=== PATIENT | female | born 1965 | race Caucasian/White ===

== ENCOUNTER 2023-07-20 10:12 | Inpatient (IN) | payer MEDICARE, SELFPAY ==
[2023-07-20] VITALS (19 sets, daily range): BP systolic 66–135; BP diastolic 31–93; PULSE 76–136; RESP 17–40; TEMP 36.3–37.7; O2SAT 93–98; BMI 50.0; BMI 49.4
--- NOTE | 2023-07-20 10:27 | EKG12_ITS ---
Test Reason : SOB Blood Pressure : / mmHG Vent. Rate : 134 BPM Atrial Rate : 134 BPM P-R Int : 142 ms QRS Dur : 086 ms QT Int : 298 ms P-R-T Axes : 000 034 103 degrees QTc Int : 445 ms Sinus tachycardia Moderate voltage criteria for LVH, may be normal variant ( Sokolow-Lynch , [place] product ) T wave abnormality, consider lateral ischemia Abnormal ECG Confirmed by JON ATKINS, RAINE ([id number]), editor book DAYANARA SCHMIDT ([id number]) on 07/23/2023 6:34:25 AM Referred By: JAIME Confirmed By:RAINE WEBB MD
--- NOTE | 2023-07-20 10:33 | ED.RN ---
NO OLD EKG
--- NOTE | 2023-07-20 10:37 | CT_ITS ---
STUDY: CTA CHEST REASON FOR EXAM: Female, 58 years old. PE suspect RADIATION DOSAGE (If Supplied By Facility): CTDIvol = ( 12.66 ) mGy, DLP = ( 533.52 ) mGycm TECHNIQUE: The examination was performed with the intravenous administration of IV 100mL Isovue-370. Post-processing of the angiographic images was performed, with multiplanar reformation and 3D reconstruction. Individualized dose optimization techniques were used for this CT. COMPARISON: Comparison is made with prior chest radiograph done earlier in the day. FINDINGS: Normal enhancement of the main pulmonary artery and right and left pulmonary arteries. Normal enhancement of the bilateral peripheral pulmonary arteries. There is no demonstrated pulmonary embolism. Normal thoracic aorta and visualized great vessels. There is no demonstrated aortic dissection. There are calcifications of the coronary arteries. Normal mediastinum. Normal hilar regions. Normal visualized trachea and bronchi. The lungs are well expanded. Patchy infiltrate in the left lower lobe as well as in the posterior aspect of the lingular segment of the left upper lobe abutting the left major fissure. Minimal increased markings at the right lung base. Normal pleura. Normal chest wall structures. There are degenerative changes of thoracic spine. Normal visualized upper abdomen. CT/CTA Chest W/WO Contrast IMPRESSION: Patchy infiltrate in the left lower lobe as well as in the posterior segment of the lingular segment of the left upper lobe. Increased markings at the right lung base. No evidence of pulmonary Electronically Signed: Seymour Mckeon MD at 11:51 EST ,
--- NOTE | 2023-07-20 10:45 | RAD_ITS ---
STUDY: X-RAY CHEST REASON FOR EXAM: Female, 58 years old. Respiratory distress, hypotension, shortness of br TECHNIQUE: Single AP portable view of the chest. COMPARISON: None. FINDINGS: EKG electrodes are seen. Small left pleural effusion with left basilar infiltrate. Normal size heart. Normal mediastinum and vikas. Normal visualized pulmonary arteries. There is atherosclerotic calcification of the aortic arch with tortuosity. Normal visualized thoracic spine. Normal visualized ribs, clavicles, and shoulders. There is no demonstrated abnormality of the visualized soft tissue structures of the upper abdomen. RAD/Chest 1 View (Portable) IMPRESSION: Small left pleural effusion with left basilar infiltrate. Electronically Signed: Seymour Mckeon MD at 11:16 EST ,
[2023-07-20 10:48] LABS: Allen Test Positive; Base Excess 15 mmol/L (-2 to +2); Bicarbonate 38.5 mmol/L (22-26); Blood Gas Specimen Type ART; Mode Not entered; O2 Delivery Device Cannula; PO2 71 mmHG (75-100); SITE R Radial; SO2 95 % (95-99); Total Carbon Dioxide 40 mmol/L; pCO2 52.3 mmHg (35-45); pH 7.47 (7.35-7.45)
[2023-07-20] MEDS: 0.9% Normal Saline (500mL Bag) 500 ML 1000 ML IV (10:56)
[2023-07-20 10:58] LABS: International Normalized Ratio 0.9; Partial Thromboplast Time 26.9 Seconds (24.1-36.2); Prothrombin Time (Protime)PT. 12.3 SECONDS (11.7-14.9)
[2023-07-20 11:03] LABS: Hematocrit 49.6 % (37-47); Hemoglobin 14.8 g/dL (12.0-15.0); Mean Corp Hgb Conc 29.8 g/dL (32-36); Mean Corpuscular Hgb 27.9 pg (27.0-32.0); Mean Corpuscular Volume 93.4 fL (81-99); Mean Platelet Vol. 13.6 fl (6.2-12.0); POSITIVE COUNT YES; POSITIVE DIFFERENTIAL YES; POSITIVE MORPHOLOGY YES; Platelet Count 66 K/mm3 (150-450); RBC Distribution Width CV 15.9 % (11.6-14.6); RBC Distribution Width SD 55.1 fl (35.1-43.9); Red Blood Count 5.31 M/mm3 (4.2-5.4)
[2023-07-20 11:05] LABS: Differential Indicated MANUAL DIFF
--- NOTE | 2023-07-20 11:11 | EDS_ITS ---
HPI History of Present Illness Chief Complaint: Shortness of Breath Detail of Chief Complaint: Acute onset of shortness of breath Informant: patient and family Onset/Context/Timing Onset: Hours (Driving to [facility] to see her nail setter for complete echo) Context: Sudden Onset Timing: Continuous Quality: Dyspnea Location: Respiratory Current Severity: Severe Maximum Severity: Severe Worsened by: Activity Relieved by: Nothing, increased O2 from 3 L to 5 L Associated Symptoms Associated Symptoms: abdominal pain, chest pain, chills, cough, fever, vomiting, diarrhea and suicidal thoughts Narrative Narrative: Patient is a 58-year-old woman who is on 3 L by nasal cannula normally. Oxygen was increased to 5 L with no effect. Patient does have a history of pulmonary embolus. Her anticoagulant was recently discontinued. She does have a history of idiopathic hypertrophic cardiomyopathy. Limited echo performed June 29 revealed an EF of 55? five 2D mode. The left ventricle is slightly enlarged. Right ventricle is normal. She had blood work on June 29 and BUN/creatinine were 12 and 0.49. Reviewing records from the clinic indicated she is scheduled to have a complete echo today by her nail setter. Patient denies fever, chills night sweats. Patient denies rhinorrhea, congestion, sore throat. She does complain of slight cough. She denies history of congestive heart failure. She denies orthopnea or PND. She denies chest discomfort. Patient denies leg pain, swelling or discoloration. Patient denies GI symptoms. Patient has history of hypothyroidism and GERD. She is taking levothyroxine and Protonix respectively Prior similar symptoms: No Recent Illness/Hospitalization: No PFSH PFSH Medical History (Updated 07/20/23 @ 12:[address] Lul Beal MD) Hypertrophic cardiomyopathy Home Medications ofztggctxbsciub-vvumdxjfzujiwun-QP 2 mg-30 mg-10 mg/5 mL oral syrup 10 ml PO Q4H PRN congestion 07/20/23 [History Last Taken Unknown] levothyroxine 150 mcg tablet 150 mcg PO DAILY 07/20/23 [History Last Taken Unknown] metoprolol succinate 100 mg tablet,extended release 24 hr 100 mg PO DAILY 07/20/23 [History Last Taken Unknown] pantoprazole 40 mg tablet,delayed release 40 mg PO DAILY 07/20/23 [History Last Taken Unknown] Allergy/AdvReac Type Severity Reaction Status Date / Time No Known Allergies Allergy Verified 07/20/23 10:14 Social History (Updated 07/20/23 @ 11:[address] Lul Beal MD) household members: family Smoking Status: Former smoker ROS ROS ED Constitutional Constitutional ED: Denies chills, fever(s), subjective, sweats or weight loss Eyes Eyes: Denies blurry vision or change in vision ENT ENT ED: Denies ear pain, rhinorrhea or sore throat Cardiovascular Cardiovascular: Denies chest pain, orthopnea, palpitations or paroxysmal nocturnal dyspnea Respiratory/Chest Respiratory/Chest: Reports cough, dyspnea and dyspnea on exertion; Denies orthopnea, paroxysmal nocturnal dyspnea or sputum Gastrointestinal Gastrointestinal: Denies abdominal pain, melena, nausea or vomiting Musculoskeletal Musculoskeletal: Denies arthralgias, back pain, myalgias or neck pain Integumentary Denies rash Neurologic Neurologic: Denies headache(s) or paresthesias Psychiatric Psychiatric: Reports anxiety Endocrine Endocrinology: Denies polydipsia, polyphagia or polyuria Hematologic/Lymphatic Hematologic/Lymphatic: Denies easy bleeding or easy bruising EXAM Physical Exam Narrative Exam Narrative: Appears in distress. She is tachycardic, she is tachypneic and hypoxic. She is also hypotensive. Const Vital Signs: 07/20/23 10:12 07/20/23 10:31 07/20/23 10:31 Temperature 97.3 F L Temperature Source Temporal Pulse Rate 136 H 133 H Respiratory Rate 22 H 40 H Respiratory Effort Respiratory Pattern Blood Pressure 66/51 L 80/67 L Blood Pressure Mean 56 71 Pulse Ox 94 96 Oxygen Delivery Method Nasal Cannula Nasal Cannula Nasal Cannula Oxygen Flow Rate (L/min) 6 6 6 07/20/23 10:33 07/20/23 10:39 07/20/23 10:59 Temperature 97.9 F Temperature Source Oral Pulse Rate 128 H 127 H Respiratory Rate 30 H 24 H Respiratory Effort Short of Breath Labored Respiratory Pattern Tachypnea Blood Pressure 75/50 L 92/31 L Blood Pressure Mean 58 51 Pulse Ox 96 95 Oxygen Delivery Method Nasal Cannula Nasal Cannula Oxygen Flow Rate (L/min) 5 5 07/20/23 11:08 Temperature Temperature Source Pulse Rate 127 H Respiratory Rate 24 H Respiratory Effort Respiratory Pattern Blood Pressure 97/67 Blood Pressure Mean 77 Pulse Ox 95 Oxygen Delivery Method Nasal Cannula Oxygen Flow Rate (L/min) 4.5 Positive well nourished, well developed and obese Constitutional Narrative: Is in respiratory distress and hemodynamically unstable. General Appearance ED: well developed; Negative for NAD or pallor Nutritional Appearance: obese HEENT HEENT Narrative: Nares patent. Posterior pharynx is normal. normocephalic and atraumatic; Negative for cyanosis of lips/distal nose or tenderness Eyes PERRL and EOMs intact bilaterally General Eye ED: Negative for pale conjunctiva or scleral icterus Neck full ROM, no lymphadenopathy, supple and no JVD Resp Resp Narrative: Use accessory muscles. Patient is tachypneic. She is not hypoxic. Patient has diminished breath sounds left greater than right. There are rhonchi and wheezing noted bilaterally. Wheezing is worse on the left. Cardio regular rhythm, S1 normal heart sound, S2 normal heart sound and no murmurs Rate: tachycardic GI non-tender, non-distended and no masses Auscultation: normoactive bowel sounds Palpation: soft Back/Spine no CVA tenderness Extremity Extremity Narrative: There is no asymmetry, discoloration, leg vein distention, there is no palpable cords. There is no tenderness on the distribution of deep venous system. Neuro oriented x3, CN's II-XII intact bilaterally and no sensory deficits noted Sensorium / Orientation: alert Psych mental status grossly normal Skin General Skin Exam: Negative for jaundice or pallor Lesions: no lesions Rashes: no rashes Sepsis Attestation Date exam was performed: 07/20/23 Time exam was performed: 11:54 Possible Source of Sepsis: Pulmonary Sepsis Organ Dysfunction Criteria Present: SBP < 90 mmHg or MAP < 65 mmHg and Lactic Acid > 2 mmol/L Fluid Resuscitation Fluid resuscitation indicated?: Yes Fluid Resuscitation ordered: Lesser volume fluid bolus ordered Amount of fluid ordered: 500 Reason for lesser fluid bolus:: Other (Since echo reveals normal EF and no evidence of diastolic dysfunction and patient is hypotensive again will give additional fluid boluses.) MDM MDM MDM Narrative Medical decision making narrative: Abrupt onset of dyspnea with tachycardia and hypotension prior history of PE with recent discontinuation of anticoagulation therapy concerned patient may have had a PE. Will obtain CTA of the chest. Since patient is hypotensive she received a 500 cc bolus since initially her EF was not known. After reviewing her records from the clinic will give more fluids if needed. Patient did respond to the 500 cc that was administered. History & Record Review Discussion w/independent historian: Patient and Family Lab Data Attestation: I reviewed the patient's lab results. Lab results narrative: White count is 3.0. H&H is normal. PT PTT are normal. Labs: Laboratory Results - last 24 hr 07/20/23 10:30 WBC 3.0 L RBC 5.31 Hgb 14.8 Hct 49.6 H MCV 93.4 MCH 27.9 MCHC 29.8 L RDW Std Deviation 55.1 H RDW Coeff of Martine 15.9 H Plt Count 66 L MPV 13.6 H Neut % (Auto) Not Reportable Absolute Neuts (auto) 1.4 L Absolute Lymphs (auto) 0.75 L Total Counted 100 Neutrophils % (Manual) 38 L Band Neutrophils % 8 H Lymphocytes % (Manual) 25 Monocytes % (Manual) 25 H Eosinophils % (Manual) 1 Myelocytes % 3 H Diff Path Review May foll Platelet Estimate MKD DEC RBC Morphology NORM C+C PT 12.3 INR 0.9 APTT 26.9 Sodium 136 Potassium 3.6 Chloride 91 L Carbon Dioxide 40.0 H Anion Gap 5 BUN 16 Creatinine 1.11 H Estim Creat Clear Calc 72.92 Est GFR (MDRD) Af Amer 64 Est GFR (MDRD) Non-Af 53 L BUN/Creatinine Ratio 14.4 Glucose 168 H Lactic Acid 2.7 H* Calcium 8.9 Total Bilirubin 0.80 AST 59 H ALT 47 Alkaline Phosphatase 50 Troponin I High Sens 155 H* B-Natriuretic Peptide 291.8 H Total Protein 6.7 Albumin 3.3 Globulin 3.4 Albumin/Globulin Ratio 1.0 ABG Data ABG results: ABG 07/20/23 10:44 Specimen Type ART Sample Site R Radial pH 7.47 H Bicarbonate Actual 38.5 H Total CO2 40 Base Excess 15 H O2 Saturation 95 O2 % 6.0 ABG pCO2 52.3 H ABG pO2 71 L Jerrell Test Positive O2 Delivery Device Cannula Vent Mode Not entered Radiography Chest X-Ray - ED: 1 View and Read by ED Physician (Chest x-ray reveals cardiomegaly. Left cardiac silhouette is somewhat obscured. There appears to be an effusion. The left hemidiaphragm is obscured as well. There is a single view because patient was hemodynamically stable and in respiratory distress. There is no cephalization. There is no cur) Diagnostic Testing: Clinical Impression(s) from Imaging Studies Chest CTA 07/20/23 10:37 IMPRESSION: Patchy infiltrate in the left lower lobe as well as in the posterior segment of the lingular segment of the left upper lobe. Increased markings at the right lung base. No evidence of pulmonary Electronically Signed: Seymour Mckeon MD at 11:51 EST , Chest X-Ray 07/20/23 10:45 IMPRESSION: Small left pleural effusion with left basilar infiltrate. Electronically Signed: Seymour Mckeon MD at 11:16 EST , EKG Initial EKG: Attestation: I personally reviewed and interpreted this EKG as follows: Interpretation: Sinus Tachycardia (Rate is 134. There is evidence of LVH. ID interval is 142 ms. Cures duration 86 ms. QT duration 298 ms. [place] is normal. There is no ossific changes which may be due to her respiratory distress. I also represent cardiac ischemia.) Critical Care Time Critical Care Time: Yes Critical care time (excluding procedures): 30-74 minutes (37), Including time spent: (, Physical, documentation, review of outside records, bedside care), Discussing w/Patient &/or Family/Special Education Curriculum Specialist, Discussing w/Consultants and Arranging Admission or Transfer Discharge Plan Triage Chief Complaint: Shortness of Breath ED Provider: Lul Beal Dx/Rx/DC Orders Clinical Impression: Severe sepsis with acute organ dysfunction, Hypothyroidism, Acute and chronic respiratory failure ([id number]), Community acquired pneumonia of left lower lobe of lung, Lingular pneumonia, Acute hypotension, Hypertrophic cardiomyopathy, Sinus tachycardia by electrocardiogram, Elevated troponin Prescriptions: No Action levothyroxine 150 mcg tablet 150 mcg PO DAILY pantoprazole 40 mg tablet,delayed release (DR/EC) 40 mg PO DAILY metoprolol succinate 100 mg tablet extended release 24 hr 100 mg PO DAILY pkvxxdxcdokgxfc-lsxefkxnn-JI 2-30-10 mg/5 mL syrup 10 ml PO Q4H PRN (Reason: congestion) Patient Comments: TAKE 10 ML BY MOUTH EVERY 4 HOURS NEEDED FOR COUGH, CONGESTION Primary Care Provider: Zaina Gant NP Referrals: Jo Hernandez NP, [employer] [Non-Staff] - Disposition Disposition: [facility]
[2023-07-20 11:13] LABS: AST(SGOT) 59 U/L (15-37); Alanine Aminotransfer ALT/SGPT 47 U/L (13-56); Albumin, Serum 3.3 g/dL (3.2-5.0); Alkaline Phosphatase 50 U/L (45-117); Anion Gap 5 (5-15); BUN 16 mg/dL (7-18); BUN/Creat Ratio 14.4 RATIO (10-20); Calcium,Total 8.9 mg/dL (8.5-10.1); Chloride 91 mmol/L (98-107); Creatinine, Serum 1.11 mg/dL (0.55-1.02); EST Glomerular Filtration Rate 53 mL/min (>60); Est Glom Filt Rate - Afr Amer 64 mL/min (>60); Estimated Creatinine Clearance 72.92 ml/min; Globulin 3.4 g/dL (2.2-4.2); Glucose 168 mg/dL (74-106); Potassium 3.6 mmol/L (3.5-5.1); Protein, Total 6.7 g/dL (6.4-8.2); Sodium Level 136 mmol/L (136-145); Troponin-I HS 155 pg/mL (3.0-54.0)
[2023-07-20 11:21] LABS: Eosinophil 1 % (0-5); Lactic Acid 2.7 mmol/L (0.4-1.9); Lymphocyte 25 % (19-41); Monocyte 25 % (0-10); Myelocyte 3 % (0-0); Neutrophil-Band 8 % (0-5); Neutrophil-Segmented 38 % (47-70); Platelet Estimate MKD DEC (ADEQ); Red Cell Morphology NORM C+C NORMAL (NORM C&C); Total Cells Counted 100 (MANUAL DIFF)
[2023-07-20 11:22] LABS: Absolute Lymphocyte Count 0.75 X10^3/uL (0.83-4.51); Absolute Neutrophil Count 1.4 X10^3/uL (2.0-7.7)
[2023-07-20 11:37] LABS: BNP,B-Type NATRIURETIC PEPTIDE 291.8 pg/mL (0-100)
[2023-07-20] MEDS: 0.9% Normal Saline (1000mL) 1,000 ML 1000 ML IV ×2 (11:59→12:01)
--- NOTE | 2023-07-20 12:17 | HP.PCM.HOS_ITS ---
HPI - General General Date of Admission: 07/20/23 Date of Service: 07/20/23 Chief Complaint: Worsening shortness of breath HPI Narrative PJ SHIRLEY, is a 58 F who presented to [facility] ED on 07/20/2023 with worsening shortness of breath. Patient seen at bedside on the floor shortly after arriving from the ED, daughter present. Patient was sitting up fairly comfortably in bed, in no acute distress. She was satting in the low to mid 90s on 6 L nasal cannula, no increased work of breathing noted. Patient stated that she felt significantly better now in comparison to earlier today when she arrived to the ED. Patient and daughter note that she had a recent complicated hospitalization at the [facility] as noted below. Since she was discharged from there, she has been on supplemental oxygen full-time, uncl ear on how many liters. Patient states she had been feeling fairly well since then, but this morning she had significant shortness of breath with some wheezing and came to the ED for further evaluation. Notably, patient and daughter state they were on their way up to [place] from [place], but because of patient's shortness of breath they decided to come to our hospital for further treatment because it was closer. Patient has received care primarily at either primary hospital or the [facility] in the past, has never been to our hospital. Patient currently reports mild cough with no significant sputum production. Reports feeling like she has mild wheezing in her upper airways. Has been using a rescue albuterol inhaler at home as needed, has not used it much recently. States she did not try using it this morning prior to coming to the hospital. She otherwise denies any fevers or chills. No other acute concerns at this time. Hospital records from recent admission at the [facility] obtained via [employer]. Patient was hospitalized at the [facility] (Main campus?) from 06/11 through 06/19/2023. Patient initially presented to [facility] on either 06/10 or 06/11 with acute hypoxic and hypercarbic respiratory failure. She was intubated and then transferred to [place] for further management. Per cardiology note from 06/19, etiology of acute respiratory failure was unclear but was thought to be secondary to flash pulmonary edema in setting of known hypertrophic cardiomyopathy. TTE did not reveal a left ventricular outflow tract obstruction per report. Patient was on a novel HOCM medication called Mavacamten that was thought to possibly be contributing to the issue, so this medication was discontinued. Echo did show marked biventricular hypertrophy with hyperdynamic LV and nearly duration of LV cavity in systole. Appears the patient was extubated around 06/14 to 06/15, required supplemental oxygen from that point going forward. There apparently was additional infiltrative cardiomyopathy workup pursued while there, results of this unknown. She was on appropriate beta-mor therapy on discharge from there. [place] by cardiology t here that given the severity of her cardiomyopathy and apparent inability to tolerate Mavacamten, definitive surgical management might include septal myectomy or ablation versus possible transplant. However, they also noted that she was a poor surgical candidate given her morbid obesity. She was eventually discharged on 06/19 with plan for close outpatient follow-up. [facility] Medical History (Updated 07/20/23 @ 18:[address] Jose Briseno, ) Hypertrophic cardiomyopathy Home Medications hfrfjuvcyxzzaha-nyjxyhbawvzrzvu-LS 2 mg-30 mg-10 mg/5 mL oral syrup 10 ml PO Q4H PRN congestion 07/20/23 [History Last Taken Unknown] levothyroxine 150 mcg tablet 150 mcg PO DAILY 07/20/23 [History Last Taken Unknown] metoprolol succinate 100 mg tablet,extended release 24 hr 100 mg PO DAILY 07/20 [History Last Taken Unknown] pantoprazole 40 mg tablet,delayed release 40 mg PO DAILY 07/20/23 [History Last Taken Unknown] Allergy/AdvReac Type Severity Reaction Status Date / Time No Known Allergies Allergy Verified 07/20/23 10:14 Family History no significant family his Social History household members: family Smoking Status: Former smoker ROS Constitutional Constitutional: Reports fatigue; Denies chills, fever(s) or weakness Eyes Eyes: Denies change in vision ENT HEENT: Denies dysphagia Cardiovascular Cardiovascular: Reports dyspnea on exertion; Denies chest pain, edema or lightheadedness Respiratory/Chest Respiratory/Chest: Reports cough, shortness of breath at rest, shortness of br eath with exertion and wheezing; Denies productive cough Gastrointestinal Gastrointestinal: Denies abdominal pain, constipation, diarrhea, nausea or vo miting Genitourinary Genitourinary: Denies dysuria Neurologic Neurologic: Denies dizziness, focal weakness or headache(s) Vital Signs Vital Signs Vital Signs: 07/20/23 10:12 07/20/23 10:31 07/20/23 10:31 Temperature 97.3 F L Temperature Source Temporal Pulse Rate 136 H 133 H Respiratory Rate 22 H 40 H Respiratory Effort Respiratory Pattern Blood Pressure 66/51 L 80/67 L Blood Pressure Mean 56 71 Pulse Ox 94 96 Oxygen Delivery Method Nasal Cannula Nasal Cannula Nasal Cannula Oxygen Flow Rate (L/min) 6 6 6 07/20/23 10:33 07/20/23 10:39 07/20/23 10:59 Temperature 97.9 F Temperature Source Oral Pulse Rate 128 H 127 H Respiratory Rate 30 H 24 H Respiratory Effort Short of Breath Labored Respiratory Pattern Tachypnea Blood Pressure 75/50 L 92/31 L Blood Pressure Mean 58 51 Pulse Ox 96 95 Oxygen Delivery Method Nasal Cannula Nasal Cannula Oxygen Flow Rate (L/min) 5 5 07/20/23 11:08 07/20/23 12:04 Temperature 98.3 F Temperature Source Oral Pulse Rate 127 H 128 H Respiratory Rate 24 H 32 H Respiratory Effort Respiratory Pattern Blood Pressure 97/67 112/85 H Blood Pressure Mean 77 94 Pulse Ox 95 93 Oxygen Delivery Method Nasal Cannula Nasal Cannula Oxygen Flow Rate (L/min) 4.5 5 Weight Weight: 132.2 kg Body Mass Index (BMI) 50.0 Physical Exam Const alert and oriented x3 Constitutional Narrative: Pleasant middle-aged female, morbidly obese, sitting up in bed, satting in low to mid 90s on 6 L nasal cannula, no increased work of breathing noted, conversing normally, no acute distress. General Appearance: cooperative and comfortable HEENT normocephalic, head/scalp atraumatic, hearing grossly normal bilaterally and nasal mucous membranes and turbinates normal Eyes PERRL, EOMs intact bilaterally and conjunctivae normal Neck full ROM, no lymphadenopathy and supple Lymph Lymphatic: no lymphadenopathy noted Chest inspection of chest normal Resp Resp Narrative: Mild wheezing noted in bilateral upper airways. Otherwise with fairly good air movement bilaterally throughout, mildly diminished, no crackles noted. Cardio regular rate, regular rhythm, no murmurs and peripheral pulses 2+ throughout GI normal to inspection, nondistended, normoactive bowel sounds, soft to palpation, non-tender and non-distended Back/Spine normal ROM Extremity normal to inspection, full ROM and no pedal edema Skin no rashes or lesions noted Neuro moves all extremities and no focal motor deficits Speech: speech normal Psych mental status grossly normal Results Lab / Micro Data 07/20/23 10:30 07/20/23 10:30 Labs: Laboratory Results - last 24 hr 07/20/23 10:30: WBC 3.0 L, RBC 5.31, Hgb 14.8, Hct 49.6 H, MCV 93.4, MCH 27.9, MCHC 29.8 L, RDW Std Deviation 55.1 H, RDW Coeff of Martine 15.9 H, Plt Count 66 L, MPV 13.6 H, Neut % (Auto) Not Reportable, Absolute Neuts (auto) 1.4 L, Absolute Lymphs (auto) 0.75 L, Total Counted 100, Neutrophils % (Manual) 38 L, Band Neutrophils % 8 H, Lymphocytes % (Manual) 25, Monocytes % (Manual) 25 H, Eosinophils % (Manual) 1, Myelocytes % 3 H, Diff Path Review November, Platelet Estimate MKD DEC, RBC Morphology NORM C+C, PT 12.3, INR 0.9, APTT 26.9, Sodium 136, Potassium 3.6, Chloride 91 L, Carbon Dioxide 40.0 H, Anion Gap 5, BUN 16, Creatinine 1.11 H, Estim Creat Clear Calc 72.92, Est GFR (MDRD) Af Amer 64, Est GFR (MDRD) Non-Af 53 L, BUN/Creatinine Ratio 14.4, Glucose 168 H, Lactic Acid 2.7 H*, Calcium 8.9, Total Bilirubin 0.80, AST 59 H, ALT 47, Alkaline Phosphatase 50, Troponin I High Sens 155 H*, B-Natriuretic Peptide 291.8 H, Total Protein 6.7, Albumin 3.3, Globulin 3.4, Albumin/Globulin Ratio 1.0 ABG Data ABG results: ABG 07/20/23 10:44 Specimen Type ART Sample Site R Radial pH 7.47 H Bicarbonate Actual 38.5 H Total CO2 40 Base Excess 15 H O2 Saturation 95 O2 % 6.0 ABG pCO2 52.3 H ABG pO2 71 L Jerrell Test Positive O2 Delivery Device Cannula Vent Mode Not entered Imagaing Radiology Impression Chest CTA 07/20/23 10:37 IMPRESSION: Patchy infiltrate in the left lower lobe as well as in the posterior segment of the lingular segment of the left upper lobe. Increased markings at the right lung base. No evidence of pulmonary Electronically Signed: Seymour Mckeon MD at 11:51 EST , Chest X-Ray 07/20/23 10:45 IMPRESSION: Small left pleural effusion with left basilar infiltrate. Electronically Signed: Seymour Mckeon MD at 11:16 EST , Assessment & Plan Assessment/Plan (1) COVID-19: (2) Hypertrophic cardiomyopathy: (3) Acute and chronic respiratory failure ([id number]): PLAN: Plan Patient is a 58-year-old female who presented to [facility] ED on 07/20/2023 with worsening shortness of breath. 1. COVID-19 pneumonia, acute on chronic hypoxic respiratory failure COVID-19 positive on admit. Requiring up to 6 L nasal cannula at rest to maintain oxygen saturations greater than 90%. Has been on home oxygen since previous hospitalization in June, unclear how much oxygen she was requiring. CTA chest on admit showed no PE, patchy infiltrate in left lower lobe and in posterior lingula segment of left upper lobe, as well as increased markings at right lung base. Flu and RSV negative. ? Admit under inpatient status to PCU. Isolation precautions in place. Initiate treatment with IV Decadron and IV remdesivir. Scheduled DuoNebs for now. Wean supplemental oxygen as able. Full respiratory panel, urine antigens, sputum culture and blood cultures pending. Okay to continue ceftriaxone and azithromycin for now. Procalcitonin ordered. 2. Hypertrophic obstructive cardiomyopathy ? See HPI for further details. Appears that current increased oxygen requirements and imaging findings are more consistent with COVID-pneumonia as opposed to volume overload from HOCM but cannot be sure. Has had fairly significant volume resuscitation but blood pressures have remained somewhat low. Cardiology consulted. Patient may need to transfer to tertiary center for further management. 3. Morbid obesity ? BMI 49 on admit. Complicates hospital course, care and prognosis. Chronic medical conditions: ? Hypothyroidism: Continue home Synthroid. ? GERD: Continue home PPI. DVT prophylaxis: Lovenox CODE STATUS: Full code, verified Expected disposition: Home, 2 to 3 days Total clinical time spent by myself addressing the patient's medical issues, reviewing all the data, and collaborating with patient's care team: 55 minutes. Charges/Coding Visit Charges Inpatient E&M: 95783 Init Hosp L2
[2023-07-20] MEDS: Ceftriaxone 2 GM in 0.9% Normal Saline (50mL MB+) 50 ML IV (12:21)
[2023-07-20] MEDS: Aspirin 81 MG TAB.CHEW 324 MG PO (12:23)
--- NOTE | 2023-07-20 13:27 | ED.RN ---
fluids on pressure bag, encouraging pt to keep arms extended. IVs are in AC. attempted to use purewick and bedpan for UA.
[2023-07-20 14:43] LABS: Reflex Lactate? Y
[2023-07-20] MEDS: Azithromycin 500 MG in Dextrose 5%-Water (250mL Bag) 250 ML 250 MG IV (16:08)
[2023-07-20 17:45] LABS: Lactic Acid 1.4 mmol/L (0.4-1.9)
[2023-07-20] MEDS: Acetaminophen 325 MG Tablet 650 MG PO (18:49)
[2023-07-20] MEDS: Lactated Ringers 1,000 ML 75 ML IV (18:49)
[2023-07-20] MEDS: dexAMETHasone 4 MG/ML Vial 6 MG IV (18:49)
[2023-07-20 19:07] LABS: Procalcitonin 0.11 ng/mL (0.00-0.09)
[2023-07-20] MEDS: Remdesivir 200 MG in 0.9% Normal Saline (250mL Bag) 210 ML 250 MG IV (20:43)
[2023-07-20] MEDS: Ipratropium/Albuterol Sulfate 3 ML AMPUL.NEB INHALATION (20:48)
--- NOTE | 2023-07-20 23:00 | NURSING ---
Dicussed mcgill catheter with patient, she refused at this time, despite reminding pt of how dyspneic she gets with ambulation and also that it can be used to monitor her kidney function. Informed pt that if she changes her mind it is still available
[2023-07-21] VITALS (25 sets, daily range): BP systolic 94–128; BP diastolic 48–74; PULSE 65–118; RESP 17–31; TEMP 36.7–37.4; O2SAT 81–99
--- NOTE | 2023-07-21 03:38 | RAD_ITS ---
EXAM: XR CHEST, 1 VIEW CLINICAL INDICATION: hypoxia TECHNIQUE: Frontal view of the chest. COMPARISON: CTA chest and portable chest radiograph of 07/20/2023. FINDINGS: Patient is rotated to the left. LUNGS AND PLEURAL SPACES: Increasing consolidation within the left mid to lower lung; the inferior half of left hemithorax is now subtotally opacified by this worsening consolidation and probable enlarging left pleural effusion. Patchy airspace disease has developed in the left perihilar/suprahilar region. No acute infiltrates are seen on the right. No right pleural effusion is demonstrated. No pneumothorax. HEART: Heart size is borderline enlarged with normal pulmonary vasculature. Left heart border is silhouetted by the worsening consolidation in the left lower lobe and lingula, along with enlarging left pleural effusion. MEDIASTINUM: Thoracic aorta remains elongated and calcific. BONES/JOINTS: Unremarkable. No acute fracture. SOFT TISSUES: Unremarkable. RAD/Chest 1 View (Portable) IMPRESSION: Worsening consolidation/pneumonia and enlarging left pleural effusion, causing subtotal opacification of the inferior left hemithorax. Additional patchy pneumonia has developed in the left perihilar region. Electronically Signed: Joselo Sylvester MD at 5:42 EST ,
[2023-07-21 04:37] LABS: Hematocrit 43.8 % (37-47); Hemoglobin 12.9 g/dL (12.0-15.0); Mean Corp Hgb Conc 29.5 g/dL (32-36); Mean Corpuscular Hgb 27.9 pg (27.0-32.0); Mean Corpuscular Volume 94.6 fL (81-99); Mean Platelet Vol. 13.4 fl (6.2-12.0); POSITIVE COUNT YES; Platelet Count 64 K/mm3 (150-450); RBC Distribution Width SD 56.3 fl (35.1-43.9); Red Blood Count 4.63 M/mm3 (4.2-5.4); White Blood Count 1.7 K/mm3 (4.4-11.0)
[2023-07-21 04:47] LABS: Scan Indicated on CBC? Y/N NO
[2023-07-21 05:00] LABS: Troponin-I HS 1143 pg/mL (3.0-54.0)
[2023-07-21 05:05] LABS: Magnesium 1.7 mg/dL (1.6-2.6)
[2023-07-21] MEDS: Levothyroxine 150 MCG Tablet PO (05:39)
[2023-07-21] MEDS: Magnesium Sulfate 2 GM in Dextrose 5%-Water (100mL Bag) 100 ML IV (05:39)
[2023-07-21] MEDS: 0.9% Saline Lock 10 ML Syringe IV (05:44)
[2023-07-21 05:55] LABS: ALB/GLOB Ratio 0.9 RATIO (0.9-2.4); AST(SGOT) 55 U/L (15-37); Alanine Aminotransfer ALT/SGPT 38 U/L (13-56); Albumin, Serum 2.6 g/dL (3.2-5.0); Alkaline Phosphatase 41 U/L (45-117); Anion Gap 4 (5-15); BUN 14 mg/dL (7-18); BUN/Creat Ratio 31.1 RATIO (10-20); Calcium,Total 7.9 mg/dL (8.5-10.1); Chloride 99 mmol/L (98-107); Creatinine, Serum 0.45 mg/dL (0.55-1.02); EST Glomerular Filtration Rate 151 mL/min (>60); Est Glom Filt Rate - Afr Amer 183 mL/min (>60); Estimated Creatinine Clearance 178.44 ml/min; Globulin 2.9 g/dL (2.2-4.2); Glucose 134 mg/dL (74-106); Protein, Total 5.5 g/dL (6.4-8.2); Sodium Level 139 mmol/L (136-145)
--- NOTE | 2023-07-21 06:57 | PCM.HOSP.N ---
Hospitalist Note 5:50am I was informed by patient's nurse at 5:10am about increasing oxygen requirements, with patient now being on 10L of oxygen. She was receiving IVF. Stat CXR ordered, and showed worsening consolidation/pneumonia and enlarging left pleural effusion causing subtotal opacification of the inferior left hemithorax and additional patchy pneumonia in the left perihilar region. Fluids discontinued and pulmonology consulted o/a of worsening left pleural effusion and increasing oxygen requirements. Patient already on IV ceftriaxone and azithromycin; these were continued.
[2023-07-21] MEDS: Ipratropium/Albuterol Sulfate 3 ML AMPUL.NEB INHALATION ×3 (07:00→20:58)
[2023-07-21 07:36] LABS: Troponin-I HS 1158 pg/mL (3.0-54.0)
--- NOTE | 2023-07-21 07:48 | CPS ---
computer not working, did not scan
[2023-07-21] MEDS: Ceftriaxone 2 GM in 0.9% Normal Saline (50mL MB+) 50 ML IV (08:46)
[2023-07-21] MEDS: Pantoprazole Sodium 40 MG Tablet PO (08:46)
[2023-07-21] MEDS: Azithromycin 500 MG in Dextrose 5%-Water (250mL Bag) 250 ML 250 MG IV (08:46)
[2023-07-21] MEDS: dexAMETHasone 4 MG/ML Vial 6 MG IV (08:47)
[2023-07-21 11:35] LABS: Troponin-I HS 1008 pg/mL (3.0-54.0)
--- NOTE | 2023-07-21 13:05 | CASEMGMT ---
RN?CM?ROCKET ENGINE COMPONENT MECHANIC?CM?spoke with patient for initial transition planning/care coordination?assessment.?RN?CM?introduced self and role at [facility].? Pt voices understanding and consents to?assessment?at this time.? Pt is A/O at this time and answers all questions appropriately.?? Care providers, pharmacy, and demographics verified/updated at this time. PCP: DARIN Gant Specialists:Dr Sheets--wet and dry sugar bin operator @ [facility] Preferred Pharmacy: [facility] [place] [facility] Prescription Benefit:?Yes Living Will/HPOA:?Pt does not currently have LW/HCPOA. Pt made aware that she can contact SW as an out-pt and make appt in the future if she decides she would like to talk with someone about this or would like to utilize [facility] social work for advanced directive completion.? LNOK:Daughter, Rosalinda. Pt also has 2 sons. One lives in [place] and the other in [place]. Living Arrangements: Pt lives w/her daughter, her daughters boyfriend, and 5-mo old grandchild in a double-wide mobile home w/3 steps to enter. Pt states she usually sponge-baths and someone helps her w/washing her hair. Pt manages her own medications. Dtr or son get the groceries. Transportation:?family DME: States has the following DME: shower chair, pulse ox, and W/C (she states it was her dad's). Pt states he has home O2 that she wears at 4 l/m and just recently turned it up to 6 l/m @ home when she started getting ill. She does not remember who set up the home O2 or what company she gets it from, but she has had it for about 6 months. She states she has been to a couple different hospitals and thinks it was set up by one of them when she was discharged. She states she will ask her daughter to see if she can figure out what company supplies this. She has a concentrator and portable O2 tanks. Pt states she uses the W/C @ home d/t having a bad back . She reports she is not able to walk far, but she can walk from the bathroom to the kitchen. She states she would like to get a new W/C, as the one she has was her father's and states it is decrepit . Pt made aware therapy will evaluate her and if they recommend a WC, CM can f/u to try and assist her w/getting another one. ? Pt states she is supposed to be getting a sleep study done @ [facility] soon. Pt states no need for further DME at this time.? HHC/SNF: No hx of SNF. Pt states she was getting [facility] and that they just made their last visit this past week. Pt states she thinks she will be able to discharge home, and if able, she is interested in HHC w/[facility] again. Pt wishes to return home and states has no concerns with going home at time of discharge.?CM?to follow for home oxygen needs and any further discharge planning/needs.? Pt voices no further concerns/needs at this time.? Advised pt to ask for?CM?if any further questions/concerns/needs arise.? Voices understanding. PLAN:??TBD. PT/OT evals pending. CM to follow for possible HHC, increase in O2 needs, and possible W/C. Prudence BSN?RN?CM
[2023-07-21] MEDS: Acetaminophen 325 MG Tablet 650 MG PO (18:03)
--- NOTE | 2023-07-21 19:15 | PCM.PN.HOSP ---
Reason for Visit Reason for Visit: Diagnoses Other hypertrophic cardiomyopathy (07/20/23) Acute and chronic respiratory failure, unspecified whether with hypoxia or hypercapnia (07/20/23) COVID-19 (07/20/23) Subjective Subjective Patient was seen and examined today, consultation for pulmonary medicine was placed earlier this morning, they will see the patient tomorrow for any recommendations. Patient's left pleural effusion appears to have increased today, she is currently on 6 L of nasal cannula oxygen and appears comfortable at rest. Objective Data Objective Data Vital Signs: Vital Signs Temp Pulse Resp BP Pulse Ox O2 Del Method O2 Flow Rate 99.4 F H 78 20 H 106/50 L 94 High Flow 6 07/21/23 18:00 07/21/23 18:00 07/21/23 18:00 07/21/23 18:00 07/21/23 18:00 07/21/23 18:00 07/21/23 18:00 Oxygen Flow Rate (L/min) 6 Oxygen Delivery Method High Flow Weight: 130.5 kg Body Mass Index (BMI) 49.4 Intake & Output: Intake and Output for Last 24 Hours 07/19/23 07/20/23 07/21/23 23:59 23:59 23:59 Intake Total 2138.33 / 2378.33 2590.25 / 2590.25 Output Total 1100 / 1100 Balance 2138.33 / 1878.33 1490.25 / 1490.25 Lab / Micro Data 07/21/23 04:06 07/21/23 04:06 Labs: Laboratory Results - last 24 hr 07/21/23 04:06: WBC 1.7 L, RBC 4.63, Hgb 12.9, Hct 43.8, MCV 94.6, MCH 27.9, MCHC 29.5 L, RDW Std Deviation 56.3 H, RDW Coeff of Martine 16.0 H, Plt Count 64 L, MPV 13.4 H, Sodium 139, Potassium 4.0, Chloride 99, Carbon Dioxide 36.0 H, Anion Gap 4 L, BUN 14, Creatinine 0.45 L, Estim Creat Clear Calc 178.44, Est GFR (MDRD) Af Amer 183, Est GFR (MDRD) Non-Af 151, BUN/Creatinine Ratio 31.1 H, Glucose 134 H, Calcium 7.9 L, Total Bilirubin 0.30, AST 55 H, ALT 38, Alkaline Phosphatase 41 L, Troponin I High Sens 1143 H*, Total Protein 5.5 L, Albumin 2.6 L, Globulin 2.9, Albumin/Globulin Ratio 0.9 07/21/23 04:31: Magnesium 1.7 07/21/23 06:30: Troponin I High Sens 1158 H* 07/21/23 09:55: Troponin I High Sens 1008 H* Micro: Microbiology 07/20/23 16:36 Mucosa - Nose Respiratory Panel (PCR) - Final 07/20/23 16:45 Urine, Clean Catch Legionella Antigen - Final 07/20/23 16:45 Urine, Clean Catch Streptococcus pneumoniae Antigen (M - Final 07/20/23 13:00 Mucosa - Nose SARS-CoV-2, Influenza & RSV (PCR) - Final SARS-CoV-2 (COVID 19 PCR) Radiography Diagnostic Testing: Radiology Impression Chest X-Ray 07/21/23 03:38 IMPRESSION: Worsening consolidation/pneumonia and enlarging left pleural effusion, causing subtotal opacification of the inferior left hemithorax. Additional patchy pneumonia has developed in the left perihilar region. Electronically Signed: Joselo Sylvester MD at 5:42 EST , Physical Exam Const alert, oriented x3 and no apparent distress Constitutional Narrative: Patient is morbidly obese General Appearance: cooperative, well kempt and well developed Orientation / Consciousness: awake, oriented to person, oriented to place and oriented to time HEENT normocephalic, head/scalp atraumatic and moist oral mucous membranes Eyes PERRL, EOMs intact bilaterally and conjunctivae normal Neck supple, no JVD, thyroid normal and no carotid bruits General: trachea midline Resp normal respiratory effort, no retractions and no use of accessory muscles Resp Narrative: Decreased breath sounds are noted over the left lung Auscultation: Negative for rales, rhonchi or wheezes Cardio regular rate, regular rhythm, S1 normal heart sound, S2 normal heart sound, no murmurs, no rub and no gallops GI normal to inspection, nondistended, normoactive bowel sounds, soft to palpation, non-tender and non-distended GI Narrative: Patient is morbidly obese Extremity no clubbing, cyanosis or edema Skin no rashes or lesions noted General Skin Exam: no breakdown Neuro oriented x3, CN's II-XII intact bilaterally, moves all extremities, no focal motor deficits and no sensory deficits noted Sensorium / Orientation: awake, alert, oriented to person, oriented to place and oriented to time Speech: speech normal Psych affect normal Assessment & Plan Assessment/Plan (1) Community acquired pneumonia of left lower lobe of lung: PLAN: Plan 1. Left lower lobe pneumonia with large left pleural effusion-patient will most probably need to undergo a thoracentesis on Sunday, she is currently stable on nasal cannula oxygen. Patient will remain on her current antibiotics. Patient will be seen by pulmonary medicine. Chest x-ray will be repeated tomorrow. #2 chronic hypoxic respiratory failure-patient is on home O2 at 3 L/min via nasal cannula, pulse ox will be monitored #3 idiopathic hypertrophic cardiomyopathy-it appears from medical record patient was unable to tolerate medication for this problem, she had been recently hospitalized in June at the [facility] for respiratory failure and this medication was stopped. I talked with cardiology briefly today and they did not feel they needed to see the patient and felt they could not add add any recommendations to her care. #4 morbid obesity-complicates care, medical course, recovery, and prognosis #5 COVID-19 infection-patient is currently on IV dexamethasone and remdesivir #6 hypothyroidism-patient is on Synthroid Total clinical time spent by myself addressing the patient's medical issues, reviewing all of her data, and collaborating with patient's care team: 35 minutes Charges/Coding Visit Charges Inpatient E&M: 93327 Subs Hosp L2
[2023-07-21] MEDS: Remdesivir 100 MG in 0.9% Normal Saline (250mL Bag) 230 ML 250 MG IV (22:08)
[2023-07-22] VITALS (9 sets, daily range): BP systolic 98–145; BP diastolic 42–80; PULSE 73–89; RESP 18–20; TEMP 36.8–36.9; O2SAT 93–98
[2023-07-22] MEDS: Acetaminophen 325 MG Tablet 650 MG PO (00:15)
--- NOTE | 2023-07-22 05:07 | CON.PCM.CC_ITS ---
Assessment & Plan Assessment/Plan (1) Acute and chronic respiratory failure ([id number]): (2) COVID-19: PLAN: Plan RECOMMENDATIONS: 1. Wean supplemental oxygen to maintain saturations at or above 90%. 2. Continue bronchodilators as ordered. 3. Broaden antimicrobials to vancomycin and Zosyn. 4. Obtain echocardiogram. 5. Continue Decadron and remdesivir as ordered. 6. Encourage incentive spirometer use and mobilize patient as tolerated. 7. Consider empiric BiPAP therapy while admitted to the hospital with naps and nightly. IMPRESSIONS: 1. Acute on chronic hypoxemic respiratory failure Most likely secondary to COVID-19 with superimposed left lower lobe bacterial pneumonia. The patient has a baseline oxygen requirement of 4 L/min in the setting of a known history of hypertrophic cardiomyopathy. In addition, she likely has an underlying component of COPD and obstructive sleep apnea. At this time, recommend broad-spectrum antimicrobials as ordered along with bronchodilators, Decadron and remdesivir. The patient is otherwise clinically stable at the present time. No additional pulmonary intervention is required. 2. History of hypertrophic cardiomyopathy/morbid obesity/hypothyroidism/G ERD/questionable sleep apnea Complicates care, management, recovery and prognosis. Continue supportive care as noted above. Consider empiric BiPAP therapy nightly while admitted to the ospital. This note was generated with [employer] dictation software. It may contain incorrect words, spelling, and punctuation that were not noted in checking the note before signing. HPI Consult Data Date of Consult: 07/22/23 HPI Narrative Reason for Consultation: COVID-19 HPI Narrative: The patient is a 58-year-old female, with a history as outlined below, who presented to the emergency department on July 20 with shortness of breath. The patient reported a recent hospitalization at [facility], during which time, she was apparently intubated. She reported that she was discharged home from that hospitalization on 4 L/min and has been on the aforementioned oxygen flow rate for 2 months. She was apparently hospitalized in the setting of concerns for flash pulmonary edema in the setting of known hypertrophic cardiomyopathy. The patient does have a prior tobacco abuse history of 1 pack of cigarettes per day, having quit completely 1 year ago. The patient also reported that she is currently being worked up for potential sleep apnea, but has yet to undergo a diagnostic polysomnogram. On presentation to the emergency department, the patient was documented to be afebrile with a presenting blood pressure of 80/67 mmHg. The patient was notably tachycardic and tachypneic, but was maintaining appropriate oxygen saturations on 6 L/min via nasal cannula. Chemistry profile was notable for an elevated bicarbonate at 40 with a creatinine of 1.1 and lactate of 2.7. Troponin was increased at 155 with a BNP of 292. CTA chest showed no evidence for pulmonary embolism, but did demonstrate an infiltrate in the left lower lobe. The patient was initially placed on antibiotics, Decadron and remdesivir. She did receive supplemental IV fluid hydration. The patient was noted to be positive for COVID-19. 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 2 and half hours later, the patient was documented to be back on her 6 L/min of supplemental oxygen. Chest imaging again demonstrated a consolidation in the left lower lobe with possible effusion. [facility] Medical History (Updated 07/20/23 @ 18:[address] Jose Briseno, ) Hypertrophic cardiomyopathy Home Medications hzohvshattyxrvg-mcobeonfomunbcb-IF 2 mg-30 mg-10 mg/5 mL oral syrup 10 ml PO Q4H PRN congestion 07/20/23 [History Last Taken Unknown] levothyroxine 150 mcg tablet 150 mcg PO DAILY 07/20/23 [History Last Taken Unknown] metoprolol succinate 100 mg tablet,extended release 24 hr 100 mg PO DAILY 07/20/23 [History Last Taken Unknown] pantoprazole 40 mg tablet,delayed release 40 mg PO DAILY 07/20/23 [History Last Taken Unknown] Allergy/AdvReac Type Severity Reaction Status Date / Time No Known Allergies Allergy Verified 07/20/23 10:14 Family History no significant family his Social History household members: family Smoking Status: Former smoker ROS ROS Narrative 10 systems were reviewed with pertinent positives as noted in the HPI above. Physical Exam Const alert and no apparent distress Constitutional Narrative: Morbidly obese. General Appearance: cooperative HEENT normocephalic, head/scalp atraumatic and moist oral mucous membranes Eyes PERRL, EOMs intact bilaterally and conjunctivae normal Neck supple General: trachea midline Chest inspection of chest normal Resp normal respiratory effort Auscultation: diminished lung sounds; Negative for rales, rhonchi or wheezes Cardio regular rate and regular rhythm GI normal to inspection, nondistended, normoactive bowel sounds Extremity no clubbing, cyanosis or edema Skin no rashes or lesions noted Neuro oriented x3, CN's II-XII intact bilaterally and moves all extremities Psych cooperative and affect normal Lab / Micro Data 07/21/23 04:06 07/21/23 04:06 Labs: Laboratory Results - last 24 hr 07/21/23 04:06: Sodium 139, Potassium 4.0, Chloride 99, Carbon Dioxide 36.0 H, Anion Gap 4 L, BUN 14, Creatinine 0.45 L, Estim Creat Clear Calc 178.44, Est GFR (MDRD) Af Amer 183, Est GFR (MDRD) Non-Af 151, BUN/Creatinine Ratio 31.1 H, Glucose 134 H, Calcium 7.9 L, Total Bilirubin 0.30, AST 55 H, ALT 38, Alkaline Phosphatase 41 L, Total Protein 5.5 L, Albumin 2.6 L, Globulin 2.9, Albumin/Globulin Ratio 0.9 07/21/23 06:30: Troponin I High Sens 1158 H* 07/21/23 09:55: Troponin I High Sens 1008 H* Imagaing Radiology Impression Chest X-Ray 07/21/23 03:38 IMPRESSION: Worsening consolidation/pneumonia and enlarging left pleural effusion, causing subtotal opacification of the inferior left hemithorax. Additional patchy pneumonia has developed in the left perihilar region. Electronically Signed: Joselo Sylvester MD at 5:42 EST , Charges/Coding Visit Charges Inpatient E&M: 44121 Init Hosp L3
--- NOTE | 2023-07-22 05:12 | ECHOCS_ITS ---
Reason For Study: DYSPNEA/SOB Procedure This was a 2D Doppler, Color Flow transthoracic echocardiogram. The study was technically difficult. Exam performed portable in patient room. The exam was abbreviated due to the COVID 19 protocol. Left Ventricle Normal LV size. Severe concentric left ventricular hypertrophy. The estimated ejection fraction is 65 %. Unable to assess diastolic function based on available data. No regional wall motion abnormalities noted. Right Ventricle Normal RV size. Normal systolic function. Atria The left and right atria are normal. Mitral Valve There is Moderate focal posterior mitral annular calcification. There is no mitral valve stenosis. Tricuspid Valve Not well visualized. Aortic Valve The aortic valve is not well visualized in the short axis view. Pulmonic Valve The pulmonic valve is not well visualized. Great Vessels Normal aortic root. Pericardium/Pleural Small pericardial effusion. There are no echocardiographic indications of cardiac tamponade. Medication Diluted definity 4ml given slow IV push to enhance endocardial definition. MMode/2D Measurements & Calculations LVIDd: 4.3 cm IVSd: 2.0 cm LAV(MOD-sp4): 99.8 ml LVIDs: 2.9 cm LVPWd: 1.8 cm FS: 32.6 % LVAd ap4: 34.9 cm2 SV(MOD-sp4): 67.3 ml SV(sp4-el): 68.4 ml LVLd ap4: 9.7 cm EDV(MOD-sp4): 105.1 ml EDV(sp4-el): 106.7 ml LVAs ap4: 18.6 cm2 LVLs ap4: 7.7 cm ESV(MOD-sp4): 37.8 ml ESV(sp4-el): 38.3 ml EF(MOD-sp4): 64.0 % EF(sp4-el): 64.1 % LA A4 area: 27.4 cm2 LA dimension(2D): 4.6 cm RA A4 area: 18.6 cm2 Time Measurements MV dec time: 0.32 sec Doppler Measurements & Calculations MV E max maicol: 110.2 cm/sec MV V2 max: 128.3 cm/sec Ao V2 max: 184.3 cm/sec MV A max maicol: 109.2 cm/sec MV max P.6 mmHg Ao max P.6 mmHg MV E/A: 1.0 MV V2 mean: 86.3 cm/sec Ao V2 mean: 124.5 cm/sec MV mean P.3 mmHg Ao mean P.0 mmHg MV V2 VTI: 43.7 cm Ao V2 VTI: 36.9 cm AV (velocity ratio): 0.80 LV V1 max: 123.6 cm/sec TR max maicol: 264.4 cm/sec LV V1 max P.1 mmHg TR max P.0 mmHg LV V1 mean P.9 mmHg LV V1 mean: 92.7 cm/sec LV V1 VTI: 29.6 cm ECHO/Echo Complete W/ Contrast Interpretation Summary The estimated ejection fraction is 65 %. Severe concentric left ventricular hypertrophy. There is Moderate focal posterior mitral annular calcification. Recommenation: Op.Cardiac MRI to evaluate for HCM Ordering Physician: Adria Méndez Referring Physician: DONAVAN BOSS Performed By: Kendra Urena RDCS
--- NOTE | 2023-07-22 05:55 | RAD_ITS ---
EXAM: XR CHEST, 1 VIEW CLINICAL INDICATION: Pneumonia, pleural effusion TECHNIQUE: Frontal view of the chest. COMPARISON: XR Chest dated 07/21/2023 FINDINGS: LUNGS AND PLEURAL SPACES: Improving left lower lobe atelectasis. Resolving left pleural effusion. HEART: Residual mild prominence of the cardiopericardial silhouette. MEDIASTINUM: No mediastinal or hilar mass. BONES/JOINTS: No acute abnormality. RAD/Chest 1 View (Portable) IMPRESSION: Improving left lower lobe atelectasis and small left pleural effusion. Electronically Signed: Behzad Sandoval MD at 10:32 EST ,
[2023-07-22] MEDS: Vancomycin HCl 2,000 MG in 0.9% Normal Saline (500mL Bag) 500 ML 250 MG IV (06:00)
[2023-07-22] MEDS: Levothyroxine 150 MCG Tablet PO (06:02)
--- NOTE | 2023-07-22 06:10 | PCM.RX.CS ---
Consult Antibiotic Management Pharmacy has been consulted to manage selected antibiotic: Vancomycin Type of Intervention Type of Consult: New start Labs Labs: Sodium 139 mmol/L (136-145) 07/21/23 04:06 Potassium 4.0 mmol/L (3.5-5.1) 07/21/23 04:06 Chloride 99 mmol/L (98-107) 07/21/23 04:06 Carbon Dioxide 36.0 mmol/L (21.0-32.0) H 07/21/23 04:06 Anion Gap 4 (5-15) L 07/21/23 04:06 BUN 14 mg/dL (7-18) 07/21/23 04:06 Creatinine 0.45 mg/dL (0.55-1.02) L 07/21/23 04:06 Est GFR (MDRD) Af Amer 183 mL/min (>60) 07/21/23 04:06 Est GFR (MDRD) Non-Af 151 mL/min (>60) 07/21/23 04:06 BUN/Creatinine Ratio 31.1 RATIO (10-20) H 07/21/23 04:06 Glucose 134 mg/dL (74-106) H 07/21/23 04:06 Microbiology Microbiology: Microbiology 07/20/23 16:36 Mucosa - Nose Respiratory Panel (PCR) - Final 07/20/23 16:45 Urine, Clean Catch Legionella Antigen - Final 07/20/23 16:45 Urine, Clean Catch Streptococcus pneumoniae Antigen (M - Final 07/20/23 13:00 Mucosa - Nose SARS-CoV-2, Influenza & RSV (PCR) - Final SARS-CoV-2 (COVID 19 PCR) Dosing Weight Weight used for dosin.5 kg Estimated Creatinine Clearance Estimated Creatinine Clearance: >100 Goal Trough Goal Trough: 15-20 mcg/mL Pharmacy Plan for Drug Dosing Pharmacy Plan for Drug Dosing: Pharmacy Service will continue to monitor and adjust dosing as required. Follow-Up Labs Follow-Up Labs: Trough: Vancomycin Date/Time Labs Ordered Labs to be done on [date and time ordered]: 07/23 @ 8552
[2023-07-22] MEDS: Piperacil/Tazobactam 3.375 GM in 0.9% Normal Saline (50mL MB+) 50 ML IV ×3 (07:03→23:44)
[2023-07-22] MEDS: Ipratropium/Albuterol Sulfate 3 ML AMPUL.NEB INHALATION ×2 (07:05→10:30)
[2023-07-22 07:06] LABS: Absolute Lymphocyte Count 0.65 X10^3/uL (0.83-4.51); Absolute Neutrophil Count 0.9 X10^3/uL (2.0-7.7); Basophil# 0.01 X10^3/uL; Basophil% 0.3 % (0-1); Eosinophil# 0.01 X10^3/uL; Eosinophils% 0.3 % (0-5); Hematocrit 40.1 % (37-47); Hemoglobin 11.7 g/dL (12.0-15.0); Lymphocyte # 0.65 X10^3/ul (0.83-4.51); Lymphocyte % 22.6 % (19-41); Mean Corp Hgb Conc 29.2 g/dL (32-36); Mean Corpuscular Hgb 27.5 pg (27.0-32.0); Mean Corpuscular Volume 94.1 fL (81-99); Mean Platelet Vol. 12.5 fl (6.2-12.0); Monocyte# 1.17 X10^3/uL; Monocyte% 40.6 % (0-10); NRBC Flagged by Analyzer 0 % (0-5); Neutrophil # 0.91 X10^3/uL (2.7-7.7); Neutrophil % 31.7 % (47-70); POSITIVE COUNT YES; POSITIVE DIFFERENTIAL YES; Platelet Count 84 K/mm3 (150-450); RBC Distribution Width CV 15.9 % (11.6-14.6); RBC Distribution Width SD 54.9 fl (35.1-43.9); Red Blood Count 4.26 M/mm3 (4.2-5.4); White Blood Count 2.9 K/mm3 (4.4-11.0)
[2023-07-22 07:10] LABS: Differential Indicated SCAN CRITERIA MET
[2023-07-22 07:20] LABS: International Normalized Ratio 0.9; Prothrombin Time (Protime)PT. 12.5 SECONDS (11.7-14.9)
[2023-07-22] MEDS: Pantoprazole Sodium 40 MG Tablet PO (10:08)
[2023-07-22] MEDS: dexAMETHasone 4 MG/ML Vial 6 MG IV (10:08)
[2023-07-22 10:48] LABS: ALB/GLOB Ratio 1.1 RATIO (0.9-2.4); AST(SGOT) 48 U/L (15-37); Alanine Aminotransfer ALT/SGPT 36 U/L (13-56); Albumin, Serum 2.6 g/dL (3.2-5.0); Alkaline Phosphatase 36 U/L (45-117); Anion Gap 4 (5-15); BUN 14 mg/dL (7-18); BUN/Creat Ratio 39.9 RATIO (10-20); Calcium,Total 7.6 mg/dL (8.5-10.1); Chloride 98 mmol/L (98-107); Creatinine, Serum 0.35 mg/dL (0.55-1.02); EST Glomerular Filtration Rate 201 mL/min (>60); Est Glom Filt Rate - Afr Amer 243 mL/min (>60); Estimated Creatinine Clearance 229.42 ml/min; Globulin 2.4 g/dL (2.2-4.2); Glucose 98 mg/dL (74-106); Potassium 4.5 mmol/L (3.5-5.1); Sodium Level 141 mmol/L (136-145)
[2023-07-22] MEDS: Vancomycin HCl 1,500 MG in 0.9% Normal Saline (500mL Bag) 500 ML 250 MG IV ×2 (13:34→21:24)
[2023-07-22 13:55] LABS: M R Staph aureus DNA By PCR Negative (Negative); Probe Check PASS; Specimen Processing Control PASS
--- NOTE | 2023-07-22 19:02 | PCM.PN.HOSP ---
Reason for Visit Reason for Visit: Diagnoses Other hypertrophic cardiomyopathy (07/20/23) Pneumonia, unspecified organism (07/20/23) Acute and chronic respiratory failure, unspecified whether with hypoxia or hypercapnia (07/20/23) COVID-19 (07/20/23) Subjective Subjective Patient was seen and examined today, she is currently on 6 L of oxygen via nasal cannula. Patient was seen by pulmonary medicine today, there were no additional recommendations at this time. Patient's chest x-ray appears improved with less infiltrate and effusion on the left side. Patient does not complain of any fevers or chills. Objective Data Objective Data Vital Signs: Vital Signs Temp Pulse Resp BP Pulse Ox O2 Del Method O2 Flow Rate 98.4 F 80 18 118/56 L 93 Nasal Cannula 6 07/22/23 13:00 07/22/23 13:00 07/22/23 13:00 07/22/23 13:00 07/22/23 13:00 07/22/23 14:00 07/22/23 14:00 Oxygen Flow Rate (L/min) 6 Oxygen Delivery Method Nasal Cannula Weight: 130.5 kg Body Mass Index (BMI) 49.4 Intake & Output: Intake and Output for Last 24 Hours 07/20/23 07/21/23 07/22/23 23:59 23:59 23:59 Intake Total 2138.33 / 2378.33 2840.25 / 2840.25 1970 / 1970 Output Total 1100 / 1400 1300 / 1300 Balance 2138.33 / 1878.33 1740.25 / 1440.25 670 / 670 Lab / Micro Data 07/22/23 06:48 07/23/23 05:35 Labs: Laboratory Results - last 24 hr 07/22/23 06:48: WBC 2.9 L, RBC 4.26, Hgb 11.7 L, Hct 40.1, MCV 94.1, MCH 27.5, MCHC 29.2 L, RDW Std Deviation 54.9 H, RDW Coeff of Martine 15.9 H, Plt Count 84 L, MPV 12.5 H, Immature Gran % (Auto) 4.500 H, Neut % (Auto) 31.7 L, Lymph % (Auto) 22.6, Henderson % (Auto) 40.6 H, Eos % (Auto) 0.3, Baso % (Auto) 0.3, Absolute Neuts (auto) 0.9 L, Absolute Lymphs (auto) 0.65 L, Nucleated RBC % 0, PT 12.5, INR 0.9, Sodium 141, Potassium 4.5, Chloride 98, Carbon Dioxide 39.0 H, Anion Gap 4 L, BUN 14, Creatinine 0.35 L, Estim Creat Clear Calc 229.42, Est GFR (MDRD) Af Amer 243, Est GFR (MDRD) Non-Af 201, BUN/Creatinine Ratio 39.9 H, Glucose 98, Calcium 7.6 L, Total Bilirubin 0.40, AST 48 H, ALT 36, Alkaline Phosphatase 36 L, Total Protein 5.0 L, Albumin 2.6 L, Globulin 2.4, Albumin/Globulin Ratio 1.1 07/22/23 11:28: MRSA (PCR) Negative Micro: Microbiology 07/20/23 12:00 Blood Culture (Wb) - Anticubital Right Blood Culture - Preliminary No growth in 48 hours. 07/20/23 12:00 Blood Culture (Wb) - Anticubital Left Blood Culture - Preliminary No growth in 48 hours. 07/20/23 16:36 Mucosa - Nose Respiratory Panel (PCR) - Final 07/20/23 16:45 Urine, Clean Catch Legionella Antigen - Final 07/20/23 16:45 Urine, Clean Catch Streptococcus pneumoniae Antigen (M - Final 07/20/23 13:00 Mucosa - Nose SARS-CoV-2, Influenza & RSV (PCR) - Final SARS-CoV-2 (COVID 19 PCR) Radiography Diagnostic Testing: Radiology Impression Chest X-Ray 07/22/23 05:55 IMPRESSION: Improving left lower lobe atelectasis and small left pleural effusion. Electronically Signed: Behzad Sandoval MD at 10:32 EST , Physical Exam Narrative alert, oriented x3 and no apparent distress Constitutional Narrative: Patient is morbidly obese General Appearance: cooperative, well kempt and well developed Orientation / Consciousness: awake, oriented to person, oriented to place and oriented to time HEENT normocephalic, head/scalp atraumatic and moist oral mucous membranes Eyes PERRL, EOMs intact bilaterally and conjunctivae normal Neck supple, no JVD, thyroid normal and no carotid bruits General: trachea midline Resp normal respiratory effort, no retractions and no use of accessory muscles Resp Narrative: Decreased breath sounds are noted over the left lung Auscultation: Negative for rales, rhonchi or wheezes Cardio regular rate, regular rhythm, S1 normal heart sound, S2 normal heart sound, no murmurs, no rub and no gallops GI normal to inspection, nondistended, normoactive bowel sounds, soft to palpation, non-tender and non-distended GI Narrative: Patient is morbidly obese Extremity no clubbing, cyanosis or edema Skin no rashes or lesions noted General Skin Exam: no breakdown Neuro oriented x3, CN's II-XII intact bilaterally, moves all extremities, no focal motor deficits and no sensory deficits noted Sensorium / Orientation: awake, alert, oriented to person, oriented to place and oriented to time Speech: speech normal Psych affect normal Assessment & Plan Assessment/Plan (1) Hypertrophic cardiomyopathy: (2) Community acquired pneumonia of left lower lobe of lung: PLAN: Plan 1. Left lower lobe pneumonia with large left pleural effusion and chest x-ray today showed improving left lower lobe atelectasis and small left pleural effusion. Patient will remain on her present antibiotics, she is being seen by pulmonary medicine #2 chronic hypoxic respiratory failure-patient is on home O2 at 3 L/min via nasal cannula, pulse ox will be monitored #3 idiopathic hypertrophic cardiomyopathy-it appears from medical record patient was unable to tolerate medication for this problem, she had been recently hospitalized in June at the [facility] for respiratory failure and this medication was stopped. I talked with cardiology briefly today and they did not feel they needed to see the patient and felt they could not add add any recommendations to her care. #4 morbid obesity-complicates care, medical course, recovery, and prognosis #5 COVID-19 infection-patient is currently on IV dexamethasone and remdesivir #6 hypothyroidism-patient is on Synthroid Total clinical time spent by myself addressing the patient's medical issues, reviewing all of her data, and collaborating with patient's care team: 35 minutes Charges/Coding Visit Charges Inpatient E&M: 39546 Subs Hosp L2
[2023-07-22] MEDS: Remdesivir 100 MG in 0.9% Normal Saline (250mL Bag) 230 ML 250 MG IV (21:23)
[2023-07-22] MEDS: 0.9% Saline Lock 10 ML Syringe IV ×2 (21:24→23:45)
[2023-07-23] VITALS (9 sets, daily range): BP systolic 130–148; BP diastolic 63–80; PULSE 68–92; RESP 18–26; TEMP 36.7–37.3; O2SAT 93–97
[2023-07-23] MEDS: Piperacil/Tazobactam 3.375 GM in 0.9% Normal Saline (50mL MB+) 50 ML IV ×3 (05:09→22:15)
[2023-07-23] MEDS: Metoprolol(XL)Succ 100 MG Tablet PO (05:42)
[2023-07-23] MEDS: Levothyroxine 150 MCG Tablet PO (05:42)
[2023-07-23 06:35] LABS: Anion Gap 3 (5-15); BUN 11 mg/dL (7-18); BUN/Creat Ratio 31.3 RATIO (10-20); Calcium,Total 7.7 mg/dL (8.5-10.1); Chloride 98 mmol/L (98-107); Creatinine, Serum 0.35 mg/dL (0.55-1.02); EST Glomerular Filtration Rate 201 mL/min (>60); Est Glom Filt Rate - Afr Amer 243 mL/min (>60); Estimated Creatinine Clearance 229.42 ml/min; Glucose 104 mg/dL (74-106); Magnesium 1.5 mg/dL (1.6-2.6); Sodium Level 141 mmol/L (136-145)
[2023-07-23 06:41] LABS: Vancomycin, Trough Level 17.4 ug/mL (5.0-15.0)
--- NOTE | 2023-07-23 06:49 | PHA.PHARE_ITS ---
Consult Antibiotic Management Pharmacy has been consulted to manage selected antibiotic: Vancomycin Type of Intervention Type of Consult: Follow-up Labs Labs: Sodium 141 mmol/L (136-145) 07/23/23 05:35 Potassium 4.0 mmol/L (3.5-5.1) 07/23/23 05:35 Chloride 98 mmol/L (98-107) 07/23/23 05:35 Carbon Dioxide 40.0 mmol/L (21.0-32.0) H 07/23/23 05:35 Anion Gap 3 (5-15) L 07/23/23 05:35 BUN 11 mg/dL (7-18) 07/23/23 05:35 Creatinine 0.35 mg/dL (0.55-1.02) L 07/23/23 05:35 Est GFR (MDRD) Af Amer 243 mL/min (>60) 07/23/23 05:35 Est GFR (MDRD) Non-Af 201 mL/min (>60) 07/23/23 05:35 BUN/Creatinine Ratio 31.3 RATIO (10-20) H 07/23/23 05:35 Glucose 104 mg/dL (74-106) 07/23/23 05:35 Vancomycin Trough 17.4 ug/mL (5.0-15.0) H 07/23/23 05:35 Microbiology Microbiology: Microbiology 07/20/23 12:00 Blood Culture (Wb) - Anticubital Right Blood Culture - Preliminary No growth in 48 hours. 07/20/23 12:00 Blood Culture (Wb) - Anticubital Left Blood Culture - Pre liminary No growth in 48 hours. 07/20/23 16:36 Mucosa - Nose Respiratory Panel (PCR) - Final 07/20/23 16:45 Urine, Clean Catch Legionella Antigen - Final 07/20/23 16:45 Urine, Clean Catch Streptococcus pneumoniae Antigen (M - Final 07/20/23 13:00 Mucosa - Nose SARS-CoV-2, Influenza & RSV (PCR) - Final SARS-CoV-2 (COVID 19 PCR) Goal Trough Goal Trough: 15-20 mcg/mL Pharmacy Plan for Drug Dosing Pharmacy Plan for Drug Dosing: VANCOMYCIN LEVEL RECEIVED Current Vancomycin Dose: 1500mg IV Q8h Number of Doses Received: 3 (loading + 2 scheduled doses) Vancomycin Level: 17.4 Hours Since Last Dose: 8hrs Renal Function: 0.35 Renal Function Trend: stable Lab/Micro: Cx showing NGTD Vancomycin Plan/Comments: Patient had a trough drawn which resulted in a value of 17.4 (Goal 15-20). Trough drawn appropriately and patient is within therapeutic range. Will continue current dose of vancomycin 1500mg IV Q8h and recheck a trough in 24hr to reassess. Pending Level: 07/24/23 @9609 Pharmacy Service will continue to monitor and adjust dosing as required.
--- NOTE | 2023-07-23 07:03 | EKG12_ITS ---
Test Reason : Blood Pressure : / mmHG Vent. Rate : 070 BPM Atrial Rate : 070 BPM P-R Int : 156 ms QRS Dur : 090 ms QT Int : 404 ms P-R-T Axes : 065 044 115 degrees QTc Int : 436 ms Normal sinus rhythm T wave abnormality, consider lateral ischemia Abnormal ECG No previous ECGs available Confirmed by JON ATKINS, RAINE ([id number]), editor map BEATRIZ GARRISON ([id number]) on 07/23/2023 2:02:58 PM Referred By: JAYY Confirmed By:RAINE WEBB MD
[2023-07-23] MEDS: Ipratropium/Albuterol Sulfate 3 ML AMPUL.NEB INHALATION ×3 (07:30→15:20)
[2023-07-23] MEDS: Vancomycin HCl 1,500 MG in 0.9% Normal Saline (500mL Bag) 500 ML 250 MG IV (07:37)
--- NOTE | 2023-07-23 08:05 | NURSING ---
pt. had 3 episodes of tachypnea/ hyperventilation without any changes to other VS. throughout my shift; 2 earlier in the evening while getting prepared to go to sleep and 1 when she requested to get up and sit in the chair instead of laying in bed. All episodes occurred around time when pt. needed to ambulate/ reposition self. Pt. stated she felt very anxious and jittery when moving, but once she was able to find a comfortable position, her respiration rates returned to normal. Pt.'s skin color showed no sign of cyanosis and pt. did not appear to become weak during these episodes. Lung sounds diminished throughout with expiratory wheezes in the bases during these episodes, which is the same as noted while pt. was resting comfortably. Pt. stated she felt that the multiple IV medications could have been causing these episodes. No noted adverse reactions while IV medications were being administered.
--- NOTE | 2023-07-23 10:04 | PN.CC_ITS ---
Assessment & Plan Assessment/Plan (1) Acute and chronic respiratory failure ([id number]): (2) COVID-19: PLAN: Plan RECOMMENDATIONS: 1. Wean supplemental oxygen to maintain saturations at or above 90%. 2. Continue bronchodilators as ordered. 3. Continue Zosyn. Okay to discontinue vancomycin. 4. Await results of echocardiogram. 5. Continue Decadron and remdesivir as ordered. 6. Encourage incentive spirometer use and mobilize patient as tolerated. 7. Start scheduled BuSpar to address anxiety. IMPRESSIONS: 1. Acute on chronic hypoxemic respiratory failure Most likely secondary to COVID-19 with superimposed left lower lobe bacterial pneumonia. The patient has a baseline oxygen requirement of 4 L/min in the sett ing of a known history of hypertrophic cardiomyopathy. In addition, she likely has an underlying component of COPD and obstructive sleep apnea. At this time, recommend broad-spectrum antimicrobials as ordered along with bronchodilators, Decadron and remdesivir. Will plan to administer a small amount of Lasix today. Echocardiogram is pending. 2. History of hypertrophic cardiomyopathy/morbid obesity/hypothyroidism/GERD/questionable sleep apnea Complicates care, management, recovery and prognosis. Continue supportive care as noted above. Consider empiric BiPAP therapy nightly while admitted to the hospital. This note was generated with [employer] dictation software. It may contain incorrect words, spelling, and punctuation that were not noted in checking the note before signing. Subjective Subjective The patient was seen and examined at the bedside this morning. Events from the last 24 hours have been reviewed. The patient is currently afebrile, hemodynamically stable and maintaining appropriate oxygen saturations on 6 L/min via nasal cannula. The patient is documented to be overall net +4.3 L for the hospitalization. The patient remains on scheduled bronchodilators, Decadron, remdesivir and empiric broad-spectrum antimicrobials. The patient does report that she has been experiencing a great deal of anxiety over the course of her hospitalization. Objective Data Objective Data The patient's most recent lab work, culture data and imaging studies have all been personally reviewed. COVID-19 PCR was positive on July 20. Vital Signs: Vital Signs Temp Pulse Resp BP Pulse Ox O2 Del Method O2 Flow Rate 98.1 F 82 18 141/63 H 93 Nasal Cannula 6 07/23/23 05:00 07/23/23 07:30 07/23/23 07:30 07/23/23 05:42 07/23/23 09:32 07/23/23 09:32 07/23/23 09:32 Oxygen Flow Rate (L/min) 6 Oxygen Delivery Method Nasal Cannula Weight: 287 lb 11.252 oz Body Mass Index (BMI) 49.4 Intake & Output: Intake and Output for Last 24 Hours 07/21/23 07/22/23 07/23/23 23:59 23:59 23:59 Intake Total 2840.25 / 2840.25 2750 / 2950 450 / 450 Output Total 1100 / 1400 1300 / 1700 1400 / 1400 Balance 1740.25 / 1440.25 1450 / 1250 -950 / -950 Lab / Micro Data Attestation: I reviewed the patient's lab results. 07/22/23 06:48 07/23/23 05:35 Labs: Laboratory Results - last 24 hr 07/22/23 06:48: Sodium 141, Potassium 4.5, Chloride 98, Carbon Dioxide 39.0 H, Anion Gap 4 L, BUN 14, Creatinine 0.35 L, Estim Creat Clear Calc 229.42, Est GFR (MDRD) Af Amer 243, Est GFR (MDRD) Non-Af 201, BUN/Creatinine Ratio 39.9 H, Glucose 98, Calcium 7.6 L, Total Bilirubin 0.40, AST 48 H, ALT 36, Alkaline Phosphatase 36 L, Total Protein 5.0 L, Albumin 2.6 L, Globulin 2.4, Albumin/Globulin Ratio 1.1 07/22/23 11:28: MRSA (PCR) Negative 07/23/23 05:35: Sodium 141, Potassium 4.0, Chloride 98, Carbon Dioxide 40.0 H, Anion Gap 3 L, BUN 11, Creatinine 0.35 L, Estim Creat Clear Calc 229.42, Est GFR (MDRD) Af Amer 243, Est GFR (MDRD) Non-Af 201, BUN/Creatinine Ratio 31.3 H, Glucose 104, Calcium 7.7 L, Magnesium 1.5 L, Vancomycin Trough 17.4 H Micro: Microbiology 07/20/23 12:00 Blood Culture (Wb) - Anticubital Right Blood Culture - Preliminary No growth in 48 hours. 07/20/23 12:00 Blood Culture (Wb) - Anticubital Left Blood Culture - Preliminary No growth in 48 hours. 07/20/23 16:36 Mucosa - Nose Respiratory Panel (PCR) - Final 07/20/23 16:45 Urine, Clean Catch Legionella Antigen - Final 07/20/23 16:45 Urine, Clean Catch Streptococcus pneumoniae Antigen (M - Final 07/20/23 13:00 Mucosa - Nose SARS-CoV-2, Influenza & RSV (PCR) - Final SARS-CoV-2 (COVID 19 PCR) Radiography Diagnostic Testing: Radiology Impression Chest X-Ray 07/22/23 05:55 IMPRESSION: Improving left lower lobe atelectasis and small left pleural effusion. Electronically Signed: Behzad Sandoval MD at 10:32 EST , Physical Exam Const alert and oriented x3 Constitutional Narrative: Morbidly obese. Sitting in bedside recliner. General Appearance: cooperative HEENT normocephalic, head/scalp atraumatic and moist oral mucous membranes Eyes PERRL, EOMs intact bilaterally and conjunctivae normal Neck supple General: trachea midline Chest inspection of chest normal Resp normal respiratory effort Auscultation: diminished lung sounds; Negative for rales, rhonchi or wheezes Cardio regular rate and regular rhythm GI normal to inspection, nondistended, normoactive bowel sounds Extremity no clubbing, cyanosis or edema Skin no rashes or lesions noted Neuro oriented x3, CN's II-XII intact bilaterally and moves all extremities Psych Mood & Affect: anxious Charges/Coding Visit Charges Inpatient E&M: 23408 Subs Hosp L3
[2023-07-23] MEDS: dexAMETHasone 4 MG/ML Vial 6 MG IV (10:13)
[2023-07-23] MEDS: 0.9% Saline Lock 10 ML Syringe IV (10:15)
[2023-07-23] MEDS: Pantoprazole Sodium 40 MG Tablet PO (10:15)
[2023-07-23] MEDS: Furosemide 40 MG/4 ML Vial IV (12:27)
[2023-07-23] MEDS: busPIRone 5 MG Tablet 10 MG PO (14:44)
[2023-07-23] MEDS: hydrOXYzine PAM 25 MG Capsule PO ×2 (19:02→22:16)
--- NOTE | 2023-07-23 20:47 | PN.HOSP_ITS ---
Reason for Visit Reason for Visit: Diagnoses Other hypertrophic cardiomyopathy (07/20/23) Pneumonia, unspecified organism (07/20/23) Acute and chronic respiratory failure, unspecified whether with hypoxia or hypercapnia (07/20/23) COVID-19 (07/20/23) Subjective Subjective Patient was seen and examined today, she appears extremely shaky today and she states she feels panicky and nervous. She had an episode of chest discomfort this morning and an EKG was performed which showed no evidence of ischemia. Patient is getting every 4 hours breathing treatments which I think may be exacerbating her tremor and nervousness, she was started on BuSpar by pulmonary medicine today, I increased the dose this afternoon and placed her on a small amount of Vistaril as needed. Objective Data Objective Data Vital Signs: Vital Signs Temp Pulse Resp BP Pulse Ox O2 Del Method O2 Flow Rate 98.7 F 68 18 130/71 H 97 Nasal Cannula 8 07/23/23 14:45 07/23/23 15:20 07/23/23 15:20 07/23/23 14:45 07/23/23 14:45 07/23/23 14:45 07/23/23 15:06 Oxygen Flow Rate (L/min) 8 Oxygen Delivery Method Nasal Cannula Weight: 130.5 kg Body Mass Index (BMI) 49.4 Intake & Output: Intake and Output for Last 24 Hours 07/21/23 07/22/23 07/23/23 23:59 23:59 23:59 Intake Total 2840.25 / 2840.25 2750 / 2950 1530 / 1530 Output Total 1100 / 1400 1300 / 1700 2300 / 2300 Balance 1740.25 / 1440.25 1450 / 1250 -770 / -770 Lab / Micro Data 07/22/23 06:48 07/23/23 05:35 Labs: Laboratory Results - last 24 hr 07/23/23 05:35: Sodium 141, Potassium 4.0, Chloride 98, Carbon Dioxide 40.0 H, Anion Gap 3 L, BUN 11, Creatinine 0.35 L, Estim Creat Clear Calc 229.42, Est GFR (MDRD) Af Amer 243, Est GFR (MDRD) Non-Af 201, BUN/Creatinine Ratio 31.3 H, Glucose 104, Calcium 7.7 L, Magnesium 1.5 L, Vancomycin Trough 17.4 H Micro: Microbiology 07/20/23 12:00 Blood Culture (Wb) - Anticubital Right Blood Culture - Preliminary No growth in 48 hours. 07/20/23 12:00 Blood Culture (Wb) - Anticubital Left Blood Culture - Preli minary No growth in 48 hours. 07/20/23 16:36 Mucosa - Nose Respiratory Panel (PCR) - Final 07/20/23 16:45 Urine, Clean Catch Legionella Antigen - Final 07/20/23 16:45 Urine, Clean Catch Streptococcus pneumoniae Antigen (M - Final 07/20/23 13:00 Mucosa - Nose SARS-CoV-2, Influenza & RSV (PCR) - Final SARS-CoV-2 (COVID 19 PCR) Radiography Diagnostic Testing: Radiology Impression Echocardiogram 07/22/23 05:12 Interpretation Summary The estimated ejection fraction is 65 %. Severe concentric left ventricular hypertrophy. There is Moderate focal posterior mitral annular calcification. Recommenation: Op.Cardiac MRI to evaluate for HCM Ordering Physician: Adria Médnez Referring Physician: DONAVAN BOSS Performed By: Kendra Urena RDCS Physical Exam Narrative alert, oriented x3 and no apparent distress Constitutional Narrative: Patient is morbidly obese General Appearance: cooperative, well kempt and well developed Orientation / Consciousness: awake, oriented to person, oriented to place and oriented to time, patient appears tremorous and nervous HEENT normocephalic, head/scalp atraumatic and moist oral mucous membranes Eyes PERRL, EOMs intact bilaterally and conjunctivae normal Neck supple, no JVD, thyroid normal and no carotid bruits General: trachea midline Resp normal respiratory effort, no retractions and no use of accessory muscles Resp Narrative: Decreased breath sounds are noted over the left lung Auscultation: Negative for rales, rhonchi or wheezes Cardio regular rate, regular rhythm, S1 normal heart sound, S2 normal heart sound, no murmurs, no rub and no gallops GI normal to inspection, nondistended, normoactive bowel sounds, soft to palpation, non-tender and non-distended GI Narrative: Patient is morbidly obese Extremity no clubbing, cyanosis or edema Skin no rashes or lesions noted General Skin Exam: no breakdown Neuro oriented x3, CN's II-XII intact bilaterally, moves all extremities, no focal motor deficits and no sensory deficits noted Sensorium / Orientation: awake, alert, oriented to person, oriented to place and oriented to time Speech: speech normal Psych affect normal Assessment & Plan Assessment/Plan (1) COVID-19: (2) Hypertrophic cardiomyopathy: (3) Community acquired pneumonia of left lower lobe of lung: PLAN: Plan 1. Left lower lobe pneumonia with large left pleural effusion and chest x-ray yesterday showed improving left lower lobe atelectasis and small left pleural effusion. Patient will remain on her present antibiotics, she is being seen by pulmonary medicine, I will repeat patient's chest x-ray tomorrow #2 chronic hypoxic respiratory failure-patient is on home O2 at 3 L/min via nasa l cannula, pulse ox will be monitored #3 idiopathic hypertrophic cardiomyopathy-it appears from medical record patient was unable to tolerate medication for this problem, she had been recently hospit alized in June at the [facility] for respiratory failure and this medication was stopped. I talked with cardiology briefly today and they did not feel they needed to see the patient and felt they could not add add any recommendations to her care. #4 morbid obesity-complicates care, medical course, recovery, and prognosis #5 COVID-19 infection-patient is currently on IV dexamethasone and remdesivir #6 hypothyroidism-patient is on Synthroid #7 anxiety and tremor-possibly secondary to every 4 hours DuoNeb treatment, I have elected to decrease the DuoNeb treatments to every 6 hours, again patient was placed on an increased dose of BuSpar and oral Vistaril as needed Total clinical time spent by myself addressing the patient's medical issues, reviewing all of her data, and collaborating with patient's care team: 35 minutes Capacity Legal Cement Tester Assistant Reflex Medical hold order details:: IF a medical hold is selected below, a suggested order for a MEDICAL HOLD will reflex upon signing the document. Next of kin: [place] law dictates a PRIORITY LIST for identifying legal decision-maker/legal next of kin in the following order (LNOK): 1st: The patient?s legal guardian, if any 2nd: The patient's spouse (if status is questionable, consult Risk Management) 3rd: The patient?s adult child(kitty) (majority, if multiple children) 4th: The patient?s parents 5th: The patient?s adult siblings (majority, if multiple children siblings) Charges/Coding Visit Charges Inpatient E&M: 23058 Subs Hosp L2
[2023-07-23] MEDS: Remdesivir 100 MG in 0.9% Normal Saline (250mL Bag) 230 ML 250 MG IV (22:15)
[2023-07-23] MEDS: busPIRone 15 MG TABLET PO (22:16)
[2023-07-24] VITALS (7 sets, daily range): BP systolic 118–155; BP diastolic 55–76; PULSE 57–69; RESP 16–20; TEMP 36.6–37.3; O2SAT 94–98
--- NOTE | 2023-07-24 02:47 | CPS ---
Pt did not want hospital bipap. Pt is on 6 L nasal O2.
[2023-07-24] MEDS: Piperacil/Tazobactam 3.375 GM in 0.9% Normal Saline (50mL MB+) 50 ML IV ×3 (06:40→20:47)
[2023-07-24] MEDS: busPIRone 15 MG TABLET PO ×3 (06:45→20:47)
[2023-07-24] MEDS: Levothyroxine 150 MCG Tablet PO (06:45)
[2023-07-24 09:31] LABS: Pathologist Review Reviewed
[2023-07-24] MEDS: Ipratropium/Albuterol Sulfate 3 ML AMPUL.NEB INHALATION (11:13)
[2023-07-24] MEDS: Pantoprazole Sodium 40 MG Tablet PO (11:20)
[2023-07-24] MEDS: dexAMETHasone 4 MG/ML Vial 6 MG IV (11:21)
[2023-07-24] MEDS: Metoprolol(XL)Succ 100 MG Tablet PO (11:21)
[2023-07-24] MEDS: hydrOXYzine PAM 25 MG Capsule PO ×2 (11:58→20:59)
--- NOTE | 2023-07-24 17:00 | PCM.PN.HOSP ---
Reason for Visit Reason for Visit: Diagnoses Other hypertrophic cardiomyopathy (07/20/23) Pneumonia, unspecified organism (07/20/23) Acute and chronic respiratory failure, unspecified whether with hypoxia or hypercapnia (07/20/23) COVID-19 (07/20/23) Subjective Subjective Patient was seen and examined today, she is currently on 6 L via nasal cannula at rest. Her daughter brought in her child today, I told the patient and the patient's daughter that this was not a good idea, they told me that the baby had been around the patient prior to patient coming in for hospitalization. They were aware of the risk. Patient's home O2 is set at 4 L. Objective Data Objective Data Vital Signs: Vital Signs Temp Pulse Resp BP Pulse Ox O2 Del Method O2 Flow Rate 98.6 F 64 20 H 118/55 L 94 Nasal Cannula 6 07/24/23 15:36 07/24/23 15:36 07/24/23 15:36 07/24/23 15:36 07/24/23 15:36 07/24/23 15:36 07/24/23 16:19 Oxygen Flow Rate (L/min) 6 Oxygen Delivery Method Nasal Cannula Weight: 130.5 kg Body Mass Index (BMI) 49.4 Intake & Output: Intake and Output for Last 24 Hours 07/22/23 07/23/23 07/24/23 23:59 23:59 23:59 Intake Total 2750 / 2950 2080 / 2280 900 / 900 Output Total 1300 / 1700 3700 / 4100 950 / 950 Balance 1450 / 1250 -1620 / -1820 -50 / -50 Lab / Micro Data 07/22/23 06:48 07/23/23 05:35 Labs: Laboratory Results - last 24 hr 07/20/23 10:30: Diff Path Review Reviewed Micro: Microbiology 07/20/23 12:00 Blood Culture (Wb) - Anticubital Right Blood Culture - Preliminary No growth in 48 hours. 07/20/23 12:00 Blood Culture (Wb) - Anticubital Left Blood Culture - Preliminary No growth in 48 hours. 07/20/23 16:36 Mucosa - Nose Respiratory Panel (PCR) - Final 07/20/23 16:45 Urine, Clean Catch Legionella Antigen - Final 07/20/23 16:45 Urine, Clean Catch Streptococcus pneumoniae Antigen (M - Final 07/20/23 13:00 Mucosa - Nose SARS-CoV-2, Influenza & RSV (PCR) - Final SARS-CoV-2 (COVID 19 PCR) Physical Exam Narrative alert, oriented x3 and no apparent distress Constitutional Narrative: Patient is morbidly obese General Appearance: cooperative, well kempt and well developed Orientation / Consciousness: awake, oriented to person, oriented to place and oriented to time, patient appears tremorous and nervous HEENT normocephalic, head/scalp atraumatic and moist oral mucous membranes Eyes PERRL, EOMs intact bilaterally and conjunctivae normal Neck supple, no JVD, thyroid normal and no carotid bruits General: trachea midline Resp normal respiratory effort, no retractions and no use of accessory muscles Resp Narrative: Decreased breath sounds are noted over the left lung Auscultation: Negative for rales, rhonchi or wheezes Cardio regular rate, regular rhythm, S1 normal heart sound, S2 normal heart sound, no murmurs, no rub and no gallops GI normal to inspection, nondistended, normoactive bowel sounds, soft to palpation, non-tender and non-distended GI Narrative: Patient is morbidly obese Extremity no clubbing, cyanosis or edema Skin no rashes or lesions noted General Skin Exam: no breakdown Neuro oriented x3, CN's II-XII intact bilaterally, moves all extremities, no focal motor deficits and no sensory deficits noted Sensorium / Orientation: awake, alert, oriented to person, oriented to place and oriented to time Speech: speech normal Psych affect normal Assessment & Plan Assessment/Plan (1) Hypertrophic cardiomyopathy: (2) COVID-19: (3) Community acquired pneumonia of left lower lobe of lung: PLAN: Plan 1. Left lower lobe pneumonia with left pleural effusion-continue present antibiotic coverage #2 chronic hypoxic respiratory failure-patient is on home O2 at 3 L/min via nasal cannula, pulse ox will be monitored, patient's oxygen requirement today was 6 L #3 idiopathic hypertrophic cardiomyopathy-it appears from medical record patient was unable to tolerate medication for this problem, she had been recently hospitalized in June at the [facility] for respiratory failure and this medication was stopped. I talked with cardiology briefly today and they did not feel they needed to see the patient and felt they could not add add any recommendations to her care. #4 morbid obesity-complicates care, medical course, recovery, and prognosis #5 COVID-19 infection-patient is currently on IV dexamethasone #6 hypothyroidism-patient is on Synthroid #7 anxiety and [id number] was probably secondary to frequent aerosol treatments Total clinical time spent by myself addressing the patient's medical issues, reviewing all of her data, and collaborating with patient's care team: 35 minutes Capacity Legal Geospatial Scientist Reflex Medical hold order details:: IF a medical hold is selected below, a suggested order for a MEDICAL HOLD will reflex upon signing the document. Next of kin: [place] law dictates a PRIORITY LIST for identifying legal decision-maker/legal next of kin in the following order (LNOK): 1st: The patient?s legal guardian, if any 2nd: The patient's spouse (if status is questionable, consult Risk Management) 3rd: The patient?s adult child(kitty) (majority, if multiple children) 4th: The patient?s parents 5th: The patient?s adult siblings (majority, if multiple children siblings) Charges/Coding Visit Charges Inpatient E&M: 73454 Subs Hosp L2
[2023-07-24] MEDS: Remdesivir 100 MG in 0.9% Normal Saline (250mL Bag) 230 ML 250 MG IV (21:06)
[2023-07-25] VITALS (8 sets, daily range): BP systolic 105–158; BP diastolic 54–72; PULSE 61–88; RESP 16; TEMP 36.1–37; O2SAT 90–98
[2023-07-25] MEDS: busPIRone 15 MG TABLET PO ×3 (05:49→21:26)
[2023-07-25] MEDS: Levothyroxine 150 MCG Tablet PO (05:49)
[2023-07-25] MEDS: Piperacil/Tazobactam 3.375 GM in 0.9% Normal Saline (50mL MB+) 50 ML IV ×3 (05:53→21:25)
[2023-07-25] MEDS: dexAMETHasone 4 MG/ML Vial 6 MG IV (10:00)
[2023-07-25] MEDS: Metoprolol(XL)Succ 100 MG Tablet PO (10:01)
[2023-07-25] MEDS: 0.9% Saline Lock 10 ML Syringe IV ×2 (10:02→14:34)
[2023-07-25] MEDS: Pantoprazole Sodium 40 MG Tablet PO (10:02)
--- NOTE | 2023-07-25 19:50 | PCM.PN.HOSP ---
Reason for Visit Reason for Visit: Diagnoses Other hypertrophic cardiomyopathy (07/20/23) Pneumonia, unspecified organism (07/20/23) Acute and chronic respiratory failure, unspecified whether with hypoxia or hypercapnia (07/20/23) COVID-19 (07/20/23) Subjective Subjective Patient was seen and examined today, she remains on 5 L nasal cannula oxygen at rest. I will have the patient ambulate tomorrow to see what her oxygen requirement would be on ambulation, I told her it may be necessary to set her up for a higher strength concentrator if she goes home. She is only on 3 L of oxygen at baseline at home. Objective Data Objective Data Vital Signs: Vital Signs Temp Pulse Resp BP Pulse Ox O2 Del Method O2 Flow Rate 97 F L 88 16 122/54 H 94 Nasal Cannula 5 07/25/23 14:42 07/25/23 14:42 07/25/23 14:42 07/25/23 14:42 07/25/23 14:42 07/25/23 14:42 07/25/23 14:42 Oxygen Flow Rate (L/min) 5 Oxygen Delivery Method Nasal Cannula Weight: 130.5 kg Body Mass Index (BMI) 49.4 Intake & Output: Intake and Output for Last 24 Hours 07/23/23 07/24/23 07/25/23 23:59 23:59 23:59 Intake Total 2080 / 2280 1202.5 / 1202.5 447.5 / 447.5 Output Total 3700 / 4100 950 / 950 400 / 400 Balance -1620 / -1820 252.5 / 252.5 47.5 / 47.5 Lab / Micro Data 07/22/23 06:48 07/23/23 05:35 Micro: Microbiology 07/20/23 12:00 Blood Culture (Wb) - Anticubital Right Blood Culture - Final No growth in 5 days. 07/20/23 12:00 Blood Culture (Wb) - Anticubital Left Blood Culture - Final No growth in 5 days. 07/20/23 16:36 Mucosa - Nose Respiratory Panel (PCR) - Final 07/20/23 16:45 Urine, Clean Catch Legionella Antigen - Final 07/20/23 16:45 Urine, Clean Catch Streptococcus pneumoniae Antigen (M - Final 07/20/23 13:00 Mucosa - Nose SARS-CoV-2, Influenza & RSV (PCR) - Final SARS-CoV-2 (COVID 19 PCR) Physical Exam Narrative alert, oriented x3 and no apparent distress Constitutional Narrative: Patient is morbidly obese General Appearance: cooperative, well kempt and well developed Orientation / Consciousness: awake, oriented to person, oriented to place and oriented to time, patient appears tremorous and nervous HEENT normocephalic, head/scalp atraumatic and moist oral mucous membranes Eyes PERRL, EOMs intact bilaterally and conjunctivae normal Neck supple, no JVD, thyroid normal and no carotid bruits General: trachea midline Resp normal respiratory effort, no retractions and no use of accessory muscles Resp Narrative: Decreased breath sounds are noted over the left lung Auscultation: Negative for rales, rhonchi or wheezes Cardio regular rate, regular rhythm, S1 normal heart sound, S2 normal heart sound, no murmurs, no rub and no gallops GI normal to inspection, nondistended, normoactive bowel sounds, soft to palpation, non-tender and non-distended GI Narrative: Patient is morbidly obese Extremity no clubbing, cyanosis or edema Skin no rashes or lesions noted General Skin Exam: no breakdown Neuro oriented x3, CN's II-XII intact bilaterally, moves all extremities, no focal motor deficits and no sensory deficits noted Sensorium / Orientation: awake, alert, oriented to person, oriented to place and oriented to time Speech: speech normal Psych affect normal Assessment & Plan Assessment/Plan (1) COVID-19: (2) Hypertrophic cardiomyopathy: (3) Community acquired pneumonia of left lower lobe of lung: PLAN: Plan 1. Left lower lobe pneumonia with left pleural effusion-continue present antibiotic coverage #2 chronic hypoxic respiratory failure-patient is on home O2 at 3 L/min via nasal cannula, pulse ox will be monitored, patient's oxygen requirement today was 6 L #3 idiopathic hypertrophic cardiomyopathy-it appears from medical record patient was unable to tolerate medication for this problem, she had been recently hospitalized in June at the [facility] for respiratory failure and this medication was stopped. I talked with cardiology briefly today and they did not feel they needed to see the patient and felt they could not add add any recommendations to her care. #4 morbid obesity-complicates care, medical course, recovery, and prognosis #5 COVID-19 infection-patient is currently on IV dexamethasone-I will transition her over to oral dexamethasone #6 hypothyroidism-patient is on Synthroid #7 anxiety and [id number]-[id number] was probably secondary to frequent aerosol treatments Total clinical time spent by myself addressing the patient's medical issues, reviewing all of her data, and collaborating with patient's care team: 35 minutes Capacity Legal Customs Compliance Manager Reflex Medical hold order details:: IF a medical hold is selected below, a suggested order for a MEDICAL HOLD will reflex upon signing the document. Next of kin: [place] law dictates a PRIORITY LIST for identifying legal decision-maker/legal next of kin in the following order (LNOK): 1st: The patient?s legal guardian, if any 2nd: The patient's spouse (if status is questionable, consult Risk Management) 3rd: The patient?s adult child(kitty) (majority, if multiple children) 4th: The patient?s parents 5th: The patient?s adult siblings (majority, if multiple children siblings) Charges/Coding Visit Charges Inpatient E&M: 84862 Subs Hosp L2
[2023-07-26] VITALS (8 sets, daily range): BP systolic 100–160; BP diastolic 56–68; PULSE 63–74; RESP 16–18; TEMP 36.3–37; O2SAT 83–97
[2023-07-26] MEDS: Levothyroxine 150 MCG Tablet PO (05:25)
[2023-07-26] MEDS: Piperacil/Tazobactam 3.375 GM in 0.9% Normal Saline (50mL MB+) 50 ML IV ×3 (05:25→23:00)
[2023-07-26] MEDS: busPIRone 15 MG TABLET PO ×2 (05:25→14:27)
[2023-07-26] MEDS: hydrOXYzine PAM 25 MG Capsule PO (05:40)
--- NOTE | 2023-07-26 05:55 | RAD_ITS ---
INDICATION: pneumonia EXAMINATION/TECHNIQUE: X-RAY - XR Chest 1 View COMPARISON: Prior study dated: 07/22/2023 FINDINGS: LINES/DEVICES: Reactive leads overlie the chest. LUNGS: The lungs are well expanded. Small left pleural effusion. Hazy bibasilar opacities. No pneumothorax. MEDIASTINUM AND CARDIOVASCULAR STRUCTURES: Cardiac silhouette remains enlarged with a calcified aorta. Central airways and mediastinal contour are otherwise unremarkable. BONES AND SOFT TISSUES: No acute abnormality. RAD/Chest 1 View (Portable) IMPRESSION: Small left pleural effusion. Hazy bibasilar opacities could be atelectasis or pneumonia. Electronically Signed: Misael Leonard MD at 6:47 EST ,
[2023-07-26] MEDS: Pantoprazole Sodium 40 MG Tablet PO (09:31)
[2023-07-26] MEDS: dexAMETHasone 4 MG Tablet 6 MG PO (09:31)
--- NOTE | 2023-07-26 10:29 | CASEMGMT ---
Per Nursing admission questions patient does not have a Healthcare Power of Registered Midwife or Healthcare Living Will and is not interested in documents. Yady Crook INTERMEDIATE MANAGER JES
--- NOTE | 2023-07-26 10:41 | CASEMGMT ---
Addendum entered by Kiki Zuniga 07/26/23 18:12: Pt's portable O2 tank and regulator has been located and is in pt's room. Dr Fabian made aware that therapy is recommending rollator, but pt does not want a rollator and still wants a W/C. Script obtained for W/C. [facility] state they do not have any W/C's in stock. Pt made aware and states has no preference of DME co and is okay with [employer]. TANG HEBERT to work on getting W/C for pt tomorrow. Addendum entered by Kiki Zuniga 07/26/23 14:58: Per RN, she and pt have both checked pt's room and her home O2 portable tank is not in the room. Noted pt de-satted to 83% on 6 l/m O2 today w/exertion. Per TANG Pritchard, this was re-checked later and pt only dropped to 89% on 6 l/m w/ambulation. TANG HEBERT placed call to Dawn @ [facility]. Pt's current O2 concentrator only goes up to 5 L/M and the regulator on the portable O2 tank goes up 8 L/M. She states if pt needs more than 6 L/M, they do have concentrators that go up to 10 L/M Addendum entered by Kiki Zuniga 07/26/23 13:06: Therapy worked w/pt today. Rollator is recommended as better alterative than a W/C. TANG HEBERT spoke w/Mal @ [facility] for robert check and is is ~ $69 after insurance. TANG HEBERT spoke w/pt re: therapy's recommendation of rollator as better alternative than a W/C. Pt states she does not want a rollator at this time. TANG HEBERT advised her to f/u with PCP once she returns home if she decides she would still like to pursue getting a W/C. She voices understanding. Addendum entered by Kiki Zuniga 07/26/23 12:47: Call received from pt's daughter, Rosalinda. O2 DME co is [employer] [facility] Call placed to [facility]. Current O2 orders are 1 L/M continuously. Pt has portable O2 tank in her room to go home on. Original Note: TANG HEBERT NOTE: TANG HEBERT placed call to [employer], to inquire if she was able to determine what DME co pt gets her home O2 from. No answer. VM left for her to return call to this TANG HEBERT. TANG HEBERT spoke w/pt. She states she would like [facility] and declines wanting list of other options, as she just recently had [facility]. Order placed and Hina, conservation planner, made aware of referral needed. Pt did not feel up to working w/therapy today, but would like to work w/them today. She was made aware TANG HEBERT will f/u with them re: if W/C is recommended, as pt had stated she would like to get a W/C @ d/c. She voices understanding. She denies need of a walker. She states she will ask her daughter about the O2 DME co if she talks w/her this morning. She denies having other discharge planning needs at this time. Prudence GREER RN, CM
--- NOTE | 2023-07-26 13:27 | CASEMGMT ---
Addendum entered by Hina Mehta 07/26/23 16:33: Patient has been accepted by [facility]. RN CM updated. Hina Mehta, Discharge Planning Asst. Original Note: Discharge Planning Ref[facility]. Hina Mehta, Discharge Planning Asst.
--- NOTE | 2023-07-26 19:03 | PCM.PN.HOSP ---
Reason for Visit Reason for Visit: Diagnoses Other hypertrophic cardiomyopathy (07/20/23) Pneumonia, unspecified organism (07/20/23) Acute and chronic respiratory failure, unspecified whether with hypoxia or hypercapnia (07/20/23) COVID-19 (07/20/23) Subjective Subjective Patient was seen and examined today, she is going to require more than 6 L via nasal cannula when she is ambulating, I made arrangements for the patient to have a new oxygen concentrator that we will handle higher oxygen flow. Objective Data Objective Data Vital Signs: Vital Signs Temp Pulse Resp BP Pulse Ox O2 Del Method O2 Flow Rate 97.4 F L 74 16 160/68 H 93 Nasal Cannula 6 07/26/23 17:20 07/26/23 17:20 07/26/23 17:20 07/26/23 17:20 07/26/23 17:20 07/26/23 17:20 07/26/23 17:20 Oxygen Flow Rate (L/min) [ 6 AMBULATING with Oxygen #2] Oxygen Flow Rate (L/min) [ 5 AMBULATING with Oxygen #1] Oxygen Flow Rate (L/min) [At 6 REST with Oxygen] Oxygen Flow Rate (L/min) 6 Oxygen Delivery Method Nasal Cannula Weight: 130.5 kg Body Mass Index (BMI) 49.4 Intake & Output: Intake and Output for Last 24 Hours 07/24/23 07/25/23 07/26/23 23:59 23:59 23:59 Intake Total 1202.5 / 1202.5 497.5 / 497.5 150 / 150 Output Total 950 / 950 600 / 600 800 / 800 Balance 252.5 / 252.5 -102.5 / -102.5 -650 / -650 Lab / Micro Data 07/22/23 06:48 07/23/23 05:35 Micro: Microbiology 07/20/23 12:00 Blood Culture (Wb) - Anticubital Right Blood Culture - Final No growth in 5 days. 07/20/23 12:00 Blood Culture (Wb) - Anticubital Left Blood Culture - Final No growth in 5 days. 07/20/23 16:36 Mucosa - Nose Respiratory Panel (PCR) - Final 07/20/23 16:45 Urine, Clean Catch Legionella Antigen - Final 07/20/23 16:45 Urine, Clean Catch Streptococcus pneumoniae Antigen (M - Final 07/20/23 13:00 Mucosa - Nose SARS-CoV-2, Influenza & RSV (PCR) - Final SARS-CoV-2 (COVID 19 PCR) Radiography Diagnostic Testing: Radiology Impression Chest X-Ray 07/26/23 05:55 IMPRESSION: Small left pleural effusion. Hazy bibasilar opacities could be atelectasis or pneumonia. Electronically Signed: Misael Leonard MD at 6:47 EST , Physical Exam Narrative alert, oriented x3 and no apparent distress Constitutional Narrative: Patient is morbidly obese General Appearance: cooperative, well kempt and well developed Orientation / Consciousness: awake, oriented to person, oriented to place and oriented to time, patient appears tremorous and nervous HEENT normocephalic, head/scalp atraumatic and moist oral mucous membranes Eyes PERRL, EOMs intact bilaterally and conjunctivae normal Neck supple, no JVD, thyroid normal and no carotid bruits General: trachea midline Resp normal respiratory effort, no retractions and no use of accessory muscles Resp Narrative: Decreased breath sounds are noted over the left lung Auscultation: Negative for rales, rhonchi or wheezes Cardio regular rate, regular rhythm, S1 normal heart sound, S2 normal heart sound, no murmurs, no rub and no gallops GI normal to inspection, nondistended, normoactive bowel sounds, soft to palpation, non-tender and non-distended GI Narrative: Patient is morbidly obese Extremity no clubbing, cyanosis or edema Skin no rashes or lesions noted General Skin Exam: no breakdown Neuro oriented x3, CN's II-XII intact bilaterally, moves all extremities, no focal motor deficits and no sensory deficits noted Sensorium / Orientation: awake, alert, oriented to person, oriented to place and oriented to time Speech: speech normal Psych affect normal Assessment & Plan Assessment/Plan (1) Lingular pneumonia: (2) COVID-19: (3) Hypertrophic cardiomyopathy: (4) Community acquired pneumonia of left lower lobe of lung: PLAN: Plan 1. Left lower lobe pneumonia with left pleural effusion-continue present antibiotic coverage, I will change the patient to oral antibiotics, patient's chest x-ray today showed a small left pleural effusion with hazy bibasilar opacities indicative of either atelectasis or pneumonia. #2 chronic hypoxic respiratory failure-patient is on home O2 at 3 L/min via nasal cannula, pulse ox will be monitored, patient's oxygen requirement today was 6 L at rest, she will be checked for her oxygen requirement on ambulation tomorrow, a new concentrator will be set up that we will handle higher flow oxygen. #3 idiopathic hypertrophic cardiomyopathy-it appears from medical record patient was unable to tolerate medication for this problem, she had been recently hospitalized in June at the [facility] for respiratory failure and this medication was stopped. I talked with cardiology briefly today and they did not feel they needed to see the patient and felt they could not add add any recommendations to her care. #4 morbid obesity-complicates care, medical course, recovery, and prognosis #5 COVID-19 infection-patient is currently on IV dexamethasone-I will transition her over to oral dexamethasone #6 hypothyroidism-patient is on Synthroid #7 anxiety and jtkexz-dxfoaumt-uxyq was probably secondary to frequent aerosol treatments Total clinical time spent by myself addressing the patient's medical issues, reviewing all of her data, and collaborating with patient's care team: 35 minutes Capacity Legal Ceramic Worker Reflex Medical hold order details:: IF a medical hold is selected below, a suggested order for a MEDICAL HOLD will reflex upon signing the document. Next of kin: [place] law dictates a PRIORITY LIST for identifying legal decision-maker/legal next of kin in the following order (LNOK): 1st: The patient?s legal guardian, if any 2nd: The patient's spouse (if status is questionable, consult Risk Management) 3rd: The patient?s adult child(kitty) (majority, if multiple children) 4th: The patient?s parents 5th: The patient?s adult siblings (majority, if multiple children siblings) Charges/Coding Visit Charges Inpatient E&M: 45773 Subs Hosp L2
[2023-07-27] VITALS (8 sets, daily range): BP systolic 127–156; BP diastolic 58–76; PULSE 65–89; RESP 16–18; TEMP 35.8–36.7; O2SAT 86–94
[2023-07-27] MEDS: busPIRone 15 MG TABLET PO ×3 (00:10→14:16)
[2023-07-27] MEDS: Levothyroxine 150 MCG Tablet PO (06:37)
[2023-07-27] MEDS: Piperacil/Tazobactam 3.375 GM in 0.9% Normal Saline (50mL MB+) 50 ML IV (06:37)
[2023-07-27] MEDS: dexAMETHasone 4 MG Tablet 6 MG PO (11:49)
[2023-07-27] MEDS: Pantoprazole Sodium 40 MG Tablet PO (11:50)
[2023-07-27] MEDS: Metoprolol(XL)Succ 100 MG Tablet PO (11:50)
--- NOTE | 2023-07-27 15:02 | CASEMGMT ---
Addendum entered by Kiki Zuniga 07/27/23 15:09: Correction: Hip to hip is 29 Original Note: TANG HEBERT NOTE: Script for W/C obtained from Dr Fabian and sent to [facility] via [facility]. Hip measurements done and is 28 . Per Pooja @ [facility], this item will need ordered and it will not be processed until next Tu. It will not be delivered to pt's home until about 2 weeks. Pt made aware and states is okay with this. TANG HEBERT recommended for pt to confirm the W/C is the appropriate size for her and that it can go through the doorways when they deliver it and to let them know if she needs a different size. She voices understanding. Pt made aware [facility] is able to accept her. Prudence GREER RN CM
--- NOTE | 2023-07-27 15:12 | CASEMGMT ---
RN CM in to discuss needs at discharge. Patient qualifies for increase in home oxygen. Script received and sent to [facility] via [employer]. Patient states she has portable tank from home. Patient has [facility] setup for at discharge. Patient denies further needs at discharge. Patient had no further questions or concerns at this time.
--- NOTE | 2023-07-27 15:23 | DCINST_ITS ---
Discharge Instructions Diet Discharge Diet: No restrictions Activity Discharge Activity: Return to Normal Activity Weight Bearing Status: Full weight bearing Follow Up Care Test Results: Test results from this visit will be discussed in further detail at your follow- up appointment, if applicable. Discharge Plan Admission Admit Date/Time: 07/20/23 12:20 Primary Reason for Your Visit: covid, respiratory insuff Attending Provider: Solis Fabian Primary Care Provider: Zaina Gant NP Consulting Providers: Yelena Farris; Abrahan Morris; Steve Traylor; Adria Méndez; Wesley Khanna; Duane Naranjo; Neli Walls; Ari Richards; Chris Ram; Froylan Rouse; Jose Briseno Instructions Additional Instructions / Restrictions: Wear oxygen Discharge Orders/Prescriptions Prescriptions: New dexamethasone 2 mg tablet 2 mg PO DAILY Qty: 4 0RF Rx Instructions: two per day starting 07/28/23 cefdinir 300 mg capsule 300 mg PO BID Qty: 6 0RF Continued levothyroxine 150 mcg tablet 150 mcg PO DAILY pantoprazole 40 mg tablet,delayed release (DR/EC) 40 mg PO DAILY metoprolol succinate 100 mg tablet extended release 24 hr 100 mg PO DAILY kgdlkphsjltneda-afillkphj-XQ 2-30-10 mg/5 mL syrup 10 ml PO Q4H PRN (Reason: congestion) Patient Comments: TAKE 10 ML BY MOUTH EVERY 4 HOURS NEEDED FOR COUGH, CONGESTION Referrals / Follow Up: Zaina Gant NP, [employer] [Primary Care Provider] - 08/06/23 10:45 am Disposition Disposition (needs filled in before D/C Order can be placed): Home Health Service
--- NOTE | 2023-07-27 15:41 | DS.PCM_ITS ---
Providers Date of Admission: 07/20/23 Date of Discharge: 07/27/23 Primary Care Physician: PATRICIA Guthrie Consultations 07/21/23 06:46 Consult: Disability Insurance Claim Examiner / Pulmonary Medicine Routine Consulting Provider: Intensivists/Pulmonary Med Reason for Consult: acute on chronic respiratory failure, worsening consolidation & effusion EMERGENT Consult: No MD Notified: Yes Date Notified: 07/21/23 Time Notified: 06:46 Method of Notification: Text Reason For Visit: COMMUNITY-ACQUITED PNEUMONIA, SEPSIS WITHOUT SHOCK Diagnosis Discharge Diagnosis (1) Lingular pneumonia: Status: Acute Code(s): J18.9 - Pneumonia, unspecified organism (2) COVID-19: Status: Acute Code(s): U07.1 - COVID-19 (3) Hypertrophic cardiomyopathy: Status: Acute Code(s): I42.2 - Other hypertrophic cardiomyopathy (4) Community acquired pneumonia of left lower lobe of lung: Status: Acute Code(s): J18.9 - Pneumonia, unspecified organism Plan 1. Acute COVID-19 infection with hypoxia on a backdrop of chronic hypoxic respiratory failure #2 Hypoxia on a backdrop of chronic hypoxic respiratory failure secondary to COVID-19 infection #3 idiopathic hypertrophic cardiomyopathy-it appears from medical record patient was unable to tolerate medication for this problem, she had been recently hospitalized in June at the [facility] for respiratory failure and this medication was stopped. I talked with cardiology briefly today and they did not feel they needed to see the patient and felt they could not add add any recommendations to her care. #4 morbid obesity-complicates care, medical course, recovery, and prognosis #5 hypothyroidism-patient is on Synthroid #6 anxiety and ckxnke-efchnybd-djqw was probably secondary to frequent aerosol treatments #7 left lower and upper lobe pneumonia with left pleural effusion-etiology unclear Sepsis was ruled out Total clinical time spent by myself addressing the patient's medical issues, reviewing all of her data, and collaborating with patient's care team: 35 minutes Medications at Discharge Home Medications yvomamlcuohfrzd-qmurdwnwbpknztj-PF 2 mg-30 mg-10 mg/5 mL oral syrup 10 ml PO Q4H PRN congestion 07/20/23 levothyroxine 150 mcg tablet 150 mcg PO DAILY 07/20/23 metoprolol succinate 100 mg tablet,extended release 24 hr 100 mg PO DAILY 07/20/23 pantoprazole 40 mg tablet,delayed release 40 mg PO DAILY 07/20/23 cefdinir 300 mg capsule 300 mg PO BID #6 caps 07/27/23 dexamethasone 2 mg tablet 2 mg PO DAILY #4 tabs 07/27/23 Hospital Course Operations None Procedures None Summary of Care Provided Minutes Spent on Discharge: 32 Hospital Course: This 58-year-old white female was seen in the emergency room at [facility] with complaints of shortness of breath. Patient states she usually wears 3 L of oxygen via nasal cannula at home, she had increase it to 5 L but was still short of breath. Patient had a history of idiopathic hypertrophic cardiomyopathy. Lab was obtained which showed a low white blood cell count at 3, platelet count was low at 66,000, troponin was 155 and beta natruretic peptide was 291. CTA of the chest was performed, there is noted to be a patchy infiltrate left lower lobe as well as the posterior segments of the lingular segments of the left upper lobe, chest x-ray showed a small left pleural effusion with left basilar infiltrate. Patient's COVID-19 test was positive. Patient was admitted to PCU for COVID-19 infection with hypoxia on a backdrop of chronic hypoxic respiratory failure and community-acquired pneumonia, patient was placed on IV antibiotics and received IV remdesivir and dexamethasone, patient's oxygen saturation was monitored, she was seen in consultation by pulmonary medicine. Patient appeared to have an increased left- sided pleural effusion during her hospital stay, this improved without the use of IV diuretics. Echocardiogram was obtained which showed a normal ejection fraction. PT and OT saw the patient. It was recommended that the patient have a rollator, the patient did not want a rollator but instead wanted a wheelchair, it was felt that the patient would benefit from a wheelchair at home to help with her activities of daily living and ambulation. On 07/27/2023, patient was seen and examined: On examination she appeared in good health and spirits, she does not appear to be in any distress. Vital signs as documented. Skin warm and dry and without overt rashes. Neck without JVD, thyroid appears normal, trachea is midline, neck is supple. Lungs clear, normal air movement was noted. Heart exam notable for regular rhythm, normal sounds and absence of murmurs, rubs or gallops. Abdomen unremarkable and without evidence of organomegaly, masses, or abdominal aortic enlargement, bowel sounds are present in all 4 quadrants, no abdominal tenderness was noted. Extremities nonedematous, no cyanosis was noted, no clubbing was noted. Neuro: Cranial nerves II through XII are grossly intact, no focal motor deficits were noted, sensation to light touch and pinprick is intact, motor exam 5/5 throughout. Psych: Patient is alert and oriented x3, she does not appear anxious or depressed, she does not appear agitated. Patient was discharged home in stable condition on 07/27/2023. Patient's oxygen at the time of discharge was 2 L on ambulation and 1 L at rest. Weight / BMI Weight Weight: 130.5 kg Body Mass Index (BMI) 49.4 ABG / Lab / Microbiology Data 07/22/23 06:48 07/23/23 05:35 Microbiology: Microbiology 07/20/23 12:00 Blood Culture (Wb) - Anticubital Right Blood Culture - Final No growth in 5 days. 07/20/23 12:00 Blood Culture (Wb) - Anticubital Left Blood Culture - Final No growth in 5 days. 07/20/23 16:36 Mucosa - Nose Respiratory Panel (PCR) - Final 07/20/23 16:45 Urine, Clean Catch Legionella Antigen - Final 07/20/23 16:45 Urine, Clean Catch Streptococcus pneumoniae Antigen (M - Final 07/20/23 13:00 Mucosa - Nose SARS-CoV-2, Influenza & RSV (PCR) - Final SARS-CoV-2 (COVID 19 PCR) D/C Instructions Discharge Diet: No restrictions Weight Bearing Status: Full weight bearing Meaningful Use Info Meaningful Use Diagnoses (Choose all that apply): None applicable Discharge Plan Admission Admit Date/Time: 07/20/23 12:20 Primary Reason for Your Visit: covid, respiratory insuff Attending Provider: Solis Fabian Primary Care Provider: Zaina Gant NP Consulting Providers: Yelena Farris; Abrahan Morris; Steve Traylor; Adria Méndez; Wesley Khanna; Duane Naranjo; Neli Walls; Ari Richards; Chris Ram; Froylan Rouse; Jose Briseno Instructions Additional Instructions / Restrictions: Wear oxygen at 2 liters /min at all times Discharge Orders/Prescriptions Prescriptions: New dexamethasone 2 mg tablet 2 mg PO DAILY Qty: 4 0RF Rx Instructions: two per day starting 07/28/23 cefdinir 300 mg capsule 300 mg PO BID Qty: 6 0RF Continued levothyroxine 150 mcg tablet 150 mcg PO DAILY pantoprazole 40 mg tablet,delayed release (DR/EC) 40 mg PO DAILY metoprolol succinate 100 mg tablet extended release 24 hr 100 mg PO DAILY opzqzgxqlvizkfn-dficybdbg-JI 2-30-10 mg/5 mL syrup 10 ml PO Q4H PRN (Reason: congestion) Patient Comments: TAKE 10 ML BY MOUTH EVERY 4 HOURS NEEDED FOR COUGH, CONGESTION Referrals / Follow Up: Zaina Gant NP, [employer] SUPER[employer]OR-C [Primary Care Provider] - 08/06/23 10:45 am Disposition Disposition (needs filled in before D/C Order can be placed): Home Health Service Charges/Coding Visit Charges Inpatient E&M: 87341 Disch Hosp >30min
--- NOTE | 2023-07-27 16:21 | CASEMGMT ---
Discharge Planning Discharge Instructions sent to [facility] via [facility]. Hina Mehta, Discharge Planning Asst.
--- NOTE | 2023-07-27 17:15 | DCINST_ITS ---
Discharge Instructions Diet Discharge Diet: No restrictions Activity Weight Bearing Status: Full weight bearing Follow Up Care Test Results: Test results from this visit will be discussed in further detail at your follow- up appointment, if applicable. Discharge Plan Admission Admit Date/Time: 07/20/23 12:20 Primary Reason for Your Visit: covid, respiratory insuff Attending Provider: Solis Fabian Primary Care Provider: Zaina Gant NP Consulting Providers: Yelena Farris; Abrahan Morris; Steve Traylor; Adria Méndez; Wesley Degroot nd; Duane Naranjo; Neli Walls; Ari Richards; Chris Ram; Froylan Rouse; Jose Briseno Instructions Additional Instructions / Restrictions: Wear oxygen at 2 liters /min at all times Discharge Orders/Prescriptions Prescriptions: New dexamethasone 2 mg tablet 2 mg PO DAILY Qty: 4 0RF Rx Instructions: two per day starting 07/28/23 cefdinir 300 mg capsule 300 mg PO BID Qty: 6 0RF Continued levothyroxine 150 mcg tablet 150 mcg PO DAILY pantoprazole 40 mg tablet,delayed release (DR/EC) 40 mg PO DAILY metoprolol succinate 100 mg tablet extended release 24 hr 100 mg PO DAILY tzwbxxgyhksxycf-zvfbzjsja-XD 2-30-10 mg/5 mL syrup 10 ml PO Q4H PRN (Reason: congestion) Patient Comments: TAKE 10 ML BY MOUTH EVERY 4 HOURS NEEDED FOR COUGH, CONGESTION Referrals / Follow Up: Zaina Gant NP, [employer] [Primary Care Provider] - 08/06/23 10:45 am Disposition Disposition (needs filled in before D/C Order can be placed): Home Health Service
== END 2023-07-27 17:58 | disposition home health service (06) | DRG 177 ==
LOC: ED 12:26 → PCU 13:01
PROVIDERS: Internal Medicine Critical Care Medicine; Student in an Organized Health Care Education/Training Program; Admitting Provider Hospitalist; Emergency Provider Emergency Medicine; PCP Nurse Practitioner Family; Visit Provider Internal Medicine
DX: U07.1 COVID-19 (principal); J12.82 Pneumonia due to coronavirus disease 2019; I42.1 Obstructive hypertrophic cardiomyopathy; J90 Pleural effusion, not elsewhere classified; Z68.42 Body mass index [BMI] 45.0-49.9, adult; J96.11 Chronic respiratory failure with hypoxia; J98.11 Atelectasis; E66.01 Morbid (severe) obesity due to excess calories; E03.9 Hypothyroidism, unspecified; G47.33 Obstructive sleep apnea (adult) (pediatric); K21.9 Gastro-esophageal reflux disease without esophagitis; F41.9 Anxiety disorder, unspecified; Z87.891 Personal history of nicotine dependence; R77.8 Other specified abnormalities of plasma proteins
CPT/HCPCS: 36415; 36600; 71045; 71275; 80048; 80053; 80202; 82803; 83605; 83735; 83880; 84145; 84484; 85025; 85027; 85610; 85730; 87040; 87449; 87631; 87633; 87641; 93005; 93306; 94640; 94668; 94762; 97110; 97162; 97166; 97530; 97535; 99285; J7030; J7040; J7050; J7120; Q9957; Q9967; A4216; C8929; J0248; J1940